=== PATIENT | male | born 1945 | race Caucasian/White ===

== ENCOUNTER 2025-04-07 06:24 | Day surgery (SDC) | payer MEDICARE, OTHER, SELFPAY ==
[2025-04-07] VITALS (10 sets, daily range): BP systolic 128–157; BP diastolic 44–63; BMI 35.6
[2025-04-07 07:40] LABS: Glucose - Point of Care 182 mg/dl (70-99)
--- NOTE | 2025-04-07 14:03 | ITS.CL.PN ---
Wheel Buffer - Procedure Note
Procedure
Procedure Note:
CARDIAC CATHETERIZATION REPORT
Date of Procedure: 04/07/2025
Referring: Dr. Melvina Merritt
Indication: atypical angina, positive cardiac stress test
PROCEDURE(S)
1. right heart catheterization
2. left heart catheterization
3. coronary angiography
ACCESS
1. 6F right radial artery (closure: radial band)
2. 5F right antecubital vein (closure: manual hemostasis)
CATHETERS
1. 5F Royal-Tita
2. 6F JR4
3. 6F JL4
MODERATE SEDATION: 35 minutes of moderate sedation was utilized. An independent medical laboratory manager was present to assist with and help manage the patient's level of consciousness and physiologic status.
HEMODYNAMIC DATA
LV 142/17 (EDP 27) mmHg
AO 136/57 (mean 90) mmHg
RA 17 mmHg
RV 52/13 (EDP 21) mmHg
PA 51/23 (mean 34) mmHg
PCWP 22 mmHg
SaO2 95.9%
SvO2 76.3%
Hb 11.5 g/dL
Weight 100 kg
CO/CI 8.70/4.08 L/min/m2
SVR 671 dsc*-5
PVR 1.4 Wood units
CORONARY ANGIOGRAPHY
Dominance: Right
LM: Large, normal
LAD: Large vessel giving rise to a moderate-caliber D1, moderate-caliber D2, and small D3. There is mild diffuse disesae only.
LCx: Large vessel giving rise to a large branching OM1 and small LPL branch. There is mild diffuse disease only.
RCA: large vessel giving rise to the RPDA and multiple RPL branches. There is a PAPER MILL MANAGER in the mid-RCA with R-R bridging collaterals and L-R collaterals from both the septum and apex. There is a marginal branch and a small bridging collateral that take
off right at the blunt proximal cap. The PAPER MILL MANAGER segment itself is straight with some calcification, and about 15 mm in length (JCTO score = 2).
RADIATION: dose 204 mGy; DAP 29.2 Gy*cm2; fluoroscopy time 5.9 min
CONCLUSIONS
1. Single vessel coronary artery disease as described in a right dominant system with RCA PAPER MILL MANAGER with R-R and L-R collaterals.
2. Mildly elevated right>left ventricular filling pressures, moderate predominantly post-capillary pulmonary hypertension, and normal cardiac output.
3. No aortic stenosis on hemodynamic pullback.
4. Of note, about 15 seconds after crossing into the LV with a JR4 catheter to measure LVEDP, the patient had ~5 seconds of complete heart block without a ventricular escape, triggered by a PAC. The period of heart block was terminated by a p-wave
that conducted after several consecutive non-conducted p-waves. This is consistent with phase 4 block. The patient had no further episodes of heart block either before or after the catheterization. He denied any personal history of lightheadedness,
dizziness, or syncope. He was discharge with a 2 week MCOT to be followed in my office and instructed to present to the ED should he have any symptoms of lightheadedness, dizziness, or syncope.
RECOMMENDATIONS
1. Aggressive secondary prevention of coronary artery disease.
2. Management of HFpEF with GDMT. Consider addition of SGLT2i.
3. Medical therapy for possible atypical anginal symptoms due to RCA PAPER MILL MANAGER. Should the patient have ongoing symptoms despite best medical therapy, consider RCA PAPER MILL MANAGER PCI with a dedicated PAPER MILL MANAGER cleaning and washing equipment operator.
4. Outpatient MCOT. If further episodes of phase 4 heart block many need consideration for PPM.
Copy to: Dr. Melvina Merritt (canal structure operator)
Signed: Jaguar Dwyer MD, PhD
== END 2025-04-07 12:34 | disposition home or self-care (01) ==
LOC: CATH 06:24
PROVIDERS: ATTENDING PHYSICIAN Student in an Organized Health Care Education/Training Program; FAMILY PHYSICIAN Student in an Organized Health Care Education/Training Program; OTHER PHYSICIAN Internal Medicine Cardiovascular Disease
DX: I25.119 Atherosclerotic heart disease of native coronary artery with unspecified angina pectoris (principal); I27.20 Pulmonary hypertension, unspecified; I25.82 Chronic total occlusion of coronary artery; I44.2 Atrioventricular block, complete; I50.30 Unspecified diastolic (congestive) heart failure; Z87.891 Personal history of nicotine dependence; I12.9 Hypertensive chronic kidney disease with stage 1 through stage 4 chronic kidney disease, or unspecified chronic kidney disease; E11.22 Type 2 diabetes mellitus with diabetic chronic kidney disease; N18.9 Chronic kidney disease, unspecified
CPT/HCPCS: 99152; 99153; 82962; 93460; C1769; C1894; Q9967

== ENCOUNTER → 2025-05-04 12:59 | Outpatient (REF) | payer MEDICARE, OTHER, SELFPAY | LOC: RAD 12:59 | PROVIDERS: ATTENDING PHYSICIAN Internal Medicine Hematology & Oncology; FAMILY PHYSICIAN Student in an Organized Health Care Education/Training Program | DX: C64.1 Malignant neoplasm of right kidney, except renal pelvis (principal) | CPT/HCPCS: 71275; Q9967 ==

== ENCOUNTER 2025-06-02 13:48 | Inpatient (IN) | payer MEDICARE, OTHER, SELFPAY ==
[2025-06-02] VITALS (13 sets, daily range): BP systolic 131–170; BP diastolic 42–96; BMI 33.5; BMI 35.8
--- NOTE | 2025-06-02 09:04 | ED.GENMED ---
History of Present Illness
<TERESO Bui - Last Filed: 06/02/25 11:00>
General
Chief Complaint: Breathing Problem
Source: patient
Exam Limitations: none
Time Seen by Provider: 06/02/25 08:56
Nursing documentation reviewed up to this point in time: agreed with
History of Present Illness
History of Present Illness:
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 Patient
reports for the past several days has had increasing shortness of breath and lower extremity swelling. He was short of breath last night while lying flat sleeping.
He normally is prescribed 20 mg of Lasix every other day. He reports this is a recent change . He was taking daily however his fiscal services manager recommended every other day because of his kidney function. Recently he increase it to 40 a day because
of his symptoms.
Patient takes 2.5 mg of Eliquis daily for the current IVC thrombus. He is followed by fiscal services manager DR Melvina Wray. Patient denies any associated chest pain.
Phy Exam
<TERESO Bui - Last Filed: 06/02/25 11:00>
General Physical Exam
General Presentation: no apparent distress
General age: appears stated age
General Skin: warm and dry
Scores
<TERESO Bui - Last Filed: 06/02/25 11:00>
Heart Failure Risk
Heart Failure Risk Score: Not Applicable
<Giuliano King DO - Last Filed: 06/02/25 13:39>
Heart Failure Risk
Heart Failure Risk Score: Yes
History of Stroke or TIA: No
History of intubation for respiratory distress: No
Heart rate on ED arrival >/= 110: No
SaO2 <90% on arrival on room air: No
HR >/=110 during 3min walk test (or too ill to perform test): Yes
ECG has acute ischemic changes: No
Urea >/=12mmol/L (BUN 33.6mg/dL): Yes
Serum CO2>/=35mmol/L: No
Troponin I or T elevated to ID Level (0.4mg/dL): No
NT-proBNP >/=5,000ng/L (5,000pg/ml): No
HF Risk Score: 3
Admission Status: HIGH RISK 15.9% Consider SNF treatment or admission to hospital
Course
<TERESO Bui - Last Filed: 06/02/25 11:00>
Orders/Labs/Results
Orders:
Orders
06/02/25 09:09
Electrocardiogram (*1) Urgent
Reason for Study: Chest Pain
Cardiac Monitoring- Treatment ONCE
EKG- Treatment ONCE
06/02/25 09:23
Complete Blood Count/With Diff Urgent
Comprehensive Metabolic Panel Urgent
Pro-BNP [NT-proBNP] Urgent
Troponin I Urgent
06/02/25 09:26
DDimer [D-Dimer] Urgent
06/02/25 09:30
CR Chest - 2 Views Urgent
Comment:
Reason For Exam: short of breath
06/02/25 Lunch
Cholesterol Lowering
06/02/25 10:48
Furosemide [Lasix] 40 mg IV NOW STA
Abnormal Lab Results
06/02/25 06/02/25
09:23 09:26
Hgb 12.8 L g/dL
(13.0-18.0)
MCHC 31.6 L g/dL
(33.0-37.0)
Absolute Monos (auto) 0.7 H 10^3/uL
(0.1-0.6)
Monocytes % 9.4 H %
(1.7-9.3)
D-Dimer 0.62 H ug/mlFEU
(0.00-0.50)
BUN 37 H mg/dl
(9-20)
Creatinine 1.4 H mg/dL
(0.7-1.3)
Glucose 126 H mg/dl
(70-99)
06/02/25 09:23
06/02/25 09:23
Vital Signs
Initial and Last Documented VS:
Initial Vital Signs
Temp Pulse Resp BP Pulse Ox
97.8 F 89 16 170/76 96
06/02/25 08:20 06/02/25 08:20 06/02/25 08:20 06/02/25 08:20 06/02/25 08:20
Last Documented Vital Signs
Temp Pulse Resp BP Pulse Ox
97.8 F 72 17 137/52 97
06/02/25 08:20 06/02/25 13:00 06/02/25 13:00 06/02/25 13:00 06/02/25 13:00
Senior Electrical Design Engineer consulted with Physician
Senior Electrical Design Engineer consulted with physician?: Yes
Name of Physician Consulted: Amy
<Giuliano King, DO - Last Filed: 06/02/25 13:39>
Orders/Labs/Results
Orders:
Orders
06/02/25 09:09
Electrocardiogram (*1) Urgent
Reason for Study: Chest Pain
Cardiac Monitoring- Treatment ONCE
EKG- Treatment ONCE
06/02/25 09:23
Complete Blood Count/With Diff Urgent
Comprehensive Metabolic Panel Urgent
Pro-BNP [NT-proBNP] Urgent
Troponin I Urgent
06/02/25 09:26
DDimer [D-Dimer] Urgent
06/02/25 09:30
CR Chest - 2 Views Urgent
Comment:
Reason For Exam: short of breath
06/02/25 Lunch
Cholesterol Lowering
06/02/25 10:48
Furosemide [Lasix] 40 mg IV NOW STA
Abnormal Lab Results
06/02/25 06/02/25
09:23 09:26
Hgb 12.8 L g/dL
(13.0-18.0)
MCHC 31.6 L g/dL
(33.0-37.0)
Absolute Monos (auto) 0.7 H 10^3/uL
(0.1-0.6)
Monocytes % 9.4 H %
(1.7-9.3)
D-Dimer 0.62 H ug/mlFEU
(0.00-0.50)
BUN 37 H mg/dl
(9-20)
Creatinine 1.4 H mg/dL
(0.7-1.3)
Glucose 126 H mg/dl
(70-99)
06/02/25 09:23
06/02/25 09:23
Vital Signs
Initial and Last Documented VS:
Initial Vital Signs
Temp Pulse Resp BP Pulse Ox
97.8 F 89 16 170/76 96
06/02/25 08:20 06/02/25 08:20 06/02/25 08:20 06/02/25 08:20 06/02/25 08:20
Last Documented Vital Signs
Temp Pulse Resp BP Pulse Ox
97.8 F 72 17 137/52 97
06/02/25 08:20 06/02/25 13:00 06/02/25 13:00 06/02/25 13:00 06/02/25 13:00
<TERESO Bui - Last Filed: 06/02/25 11:00>
MDM/Problems Addressed
Differential Diagnosis Includes:
Not limited to CHF PE
MDM/Problems Addressed:
Symptoms are consistent with congestive heart failure. Patient complains of increasing swelling of lower extremities and shortness of breath.. Chest x-ray shows mild pulmonary edema with a minimal right pleural effusion. Patient has stage IV
kidney cancer not currently treated yet. He is on Eliquis for history of an IVC thrombus. Less likely PE. ddimer normal age adjusted case reviewed with ED physician who evaluated patient. Patient denies any chest pain.
Patient in no acute distress however does feel mildly short of breath and is mildly hypoxic. Patient placed on nasal cannula 2 L. Will admit for IV diuresis.
Chronic conditions affecting care:
Stage IV kidney cancer CHF hypertension diabetes
<TERESO Bui - Last Filed: 06/02/25 11:00>
*Radiology
Radiology exam reviewed: radiology read reviewed
*Pulse Oximetry
SaO2: 91
Oxygen Mode of Delivery: Room air
Patient hypoxic: yes
*Critical Care Note
Total Time (30-74mins, 75-104mins- exclusive of procedures): Not Applicable
ED Attending Note
<TERESO Bui - Last Filed: 06/02/25 11:00>
-
Portions of this chart may have been created with voice recognition software.� Occasional wrong word or��sound alike� substitutions may have occurred due to the inherent limitations of voice recognition software.
<Giuliano King DO - Last Filed: 06/02/25 13:39>
ED Attending Note
Patient seen and examined by attending physician: Yes
ED Attending Note:
I reviewed and agree with history treatment plan by TERESO Motta. My exam revealed 80-year-old male with bilateral rales, bilateral tibial edema. Admit to hospitalist for CHF exacerbation. IV Lasix given.
Discharge Plan
Departure
Patient Disposition: Admit
Date of Disposition: 06/02/25
Time of Disposition: 10:56
Admit to: Telemetry
Admit to doctor: hospitalist
Presentation/result/management discussed w/ accepting MD/DO: Hospitalist
Patient with high blood pressure during this ER visit?: Yes
Condition: Fair
Covid-19: Not Applicable
Discharge Problem:
Congestive heart failure (CHF)
Prescriptions:
No Action
losartan 50 mg Tablet
50 mg PO BID
aspirin 81 mg Tablet,Chewable
81 mg PO DAILY
vitamin B complex Tablet
1 tab PO DAILY
furosemide 20 mg Tablet
20 mg PO DAILY
magnesium 200 mg Tablet
200 mg PO DAILY
omega-3 fatty acids-fish oil 684-1,200 mg Capsule,Delayed Release(Dr/Ec)
2 cap PO DAILY
azelastine 137 mcg (0.1 %) [place],Non-Aerosol
2 spray INTRANASAL HS
Eliquis 2.5 mg Tablet
2.5 mg PO BID
turmeric 400 mg Capsule
400 mg PO DAILY
Referrals:
ION HOLMAN DO [Family Provider, Family Practice]
Interventions
Interventions:
*Risk Screen - Suicide Last Done: 06/02/25 09:33
*General Assessment Last Done: 06/02/25 09:33
*Neglect/Abuse Screening Last Done: 06/02/25 09:33
*ED COVID-19 Vaccine History Last Done: 06/02/25 09:33
*ED Influenza Vaccine History Last Done: 06/02/25 09:33
[facility] Fall Risk Assessment Tool Last Done: 06/02/25 09:33
ED- Cardiac Assessment Last Done: 06/02/25 09:33
ED- Pulmonary Assessment Last Done: 06/02/25 09:33
Discharge Date and Time
Print Language: MAORI
--- NOTE | 2025-06-02 09:08 | EDRN ---
Mami Munoz NP in room w/ pt.
--- NOTE | 2025-06-02 09:25 | EDRN ---
Dr. King in to see pt.
[2025-06-02 09:36] LABS: Hematocrit 40.5 % (39.0-52.0); Hemoglobin 12.8 g/dL (13.0-18.0); Mean Corp Hgb Conc. 31.6 g/dL (33.0-37.0); Mean Corpuscular Volume 86.0 fL (80.0-94.0); Nucleated Red Blood Cells % 0 % (-); Platelet Count 213 10^3/uL (130-400); Red Cell Dist. Width 13.9 % (11.5-14.5)
[2025-06-02 09:50] LABS: ALT (SGPT) 23 U/L (0-50); AST (SGOT) 27 U/L (17-59); Alkaline Phosphatase 68 U/L (38-126); Blood Urea Nitrogen 37 mg/dl (9-20); Calcium 9.3 mg/dl (8.4-10.2); Carbon Dioxide 29 mmol/L (22-30); Chloride 104 mmol/L (98-107); Estimated Creatinine Clearance 47 ml/min; Glucose 126 mg/dl (70-99); Potassium 4.5 mmol/L (3.5-5.1); Sodium 139 mmol/L (135-145); Total Protein 7.2 g/dl (6.3-8.2); eGFR 50.18
[2025-06-02 09:53] LABS: D-Dimer 0.62 ug/mlFEU (0.00-0.50)
[2025-06-02 09:57] LABS: Albumin 4.5 g/dl (3.5-5.0)
[2025-06-02 10:01] LABS: Troponin I 0.019 ng/ml
--- NOTE | 2025-06-02 11:25 | EDRN ---
remediation technician Emily in room w/ pt doing med rec at this time.
[2025-06-02] MEDS: LASIX 40 MG IV ×2 (11:41→17:42)
--- NOTE | 2025-06-02 11:49 | EDRN ---
After 11:00 Mami Munoz NP placed pt on oxygen at 2lpm for low POX, 88-91%.
--- NOTE | 2025-06-02 14:45 | EDRN ---
Pt administered boxed lunch and cup of water after okayed w/ NEmber Munoz RADIOLOGICAL ENGINEER (at kristen 13:30).
--- NOTE | 2025-06-02 15:05 | CON.CAR ---
Addendum entered and electronically signed by Giacomo Pozo MD 06/02/25 18:30:
I saw and examined the patient independently, and performed majority of MDM.
The AUDIOLOGY DIRECTOR's note was reviewed and I agree with the note with changes/additions below.
Comment: 80 yo male with PMH of CAD (RCA INFORMATION SYSTEMS SECURITY SPECIALIST with collaterals), chronic HFPEF, CKD3a, newly diagnosed RCC, IVC thrombus on eliquis. Admitted with SOB, edema. Exam with RRR, no murmurs, 1+ LE edema. Echo: EF 55%, basal inferior hypokinesis, IVC
thrombus on eliquis. Cr 1.4.
Acute on chronic HFPEF. Severe, requiring hospitalization for IV diuresis, and close monitoring of labs/tele. Lasix recently increased from 20mg qod to qd. Continue lasix 40mg IV bid.
IVC thrombus. Known by history. Visualized on echo. I increased eliquis to 5mg bid and will discuss with hospitalist.
Original Note:
Consultation
Consultation Request
Date/Time Consultation Requested: 06/02/25 1:30p
Date/Time Consultation Performed: 06/02/25 2:30p
Requesting Provider: Dr. Manriquez
Performing Provider: TEREOS Breaux for Dr. Pozo
Reason for Consultation: HFpEF
Medical History
-
Chief Complaint: sob, weight gain
History of Present Illness:
Mr. 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
last 3 days. He also noticed weight gain of about 4 lbs overnight. His supervisor accounts receivable is Dr. Melvina Merritt at [facility]. He takes Lasix 20mg every other day, in the past Dr. Merritt tried to increase Lasix to daily but his kidney function
worsened so he went back to every other day. These last 3 days he has been taking Lasix daily, but no improvement. He is admitted to the hospitalist service and we are consulted for acute HFpEF. His chest x-ray shows mild interstitial cardiogenic
pulmonary edema, minimal right pleural effusion, mild cardiomegaly, metastatic mediastinal and right hilar lymphadenopathy. He follows with Dr. Livingston for renal cancer and is awaiting a brain MRI prior to treatment, this is scheduled for
06/14/25. Chest CT was completed in Apr 2025.
Past Medical History
Past Medical History: Other (as above)
Past Surgical History: Appendectomy
Social History
Tobacco: Former Smoker
Personal:
Living: With Family
Employment: Retired
Family History
Family History: Reviewed & Not Pertinent
Allergies / Home Medications
Allergy/AdvReac Type Severity Reaction Status Date / Time
No Known Allergies Allergy Verified 06/02/25 08:20
�Medication �Instructions �Recorded �Confirmed �Type
aspirin 81 mg chewable tablet 81 mg PO DAILY 04/07/25 06/02/25 History
furosemide 20 mg tablet 20 mg PO DAILY 04/07/25 06/02/25 History
losartan 50 mg tablet 50 mg PO BID 04/07/25 06/02/25 History
magnesium 200 mg tablet 200 mg PO DAILY 04/07/25 06/02/25 History
omega-3 fatty acids-fish oil 684 2 cap PO DAILY 04/07/25 06/02/25 History
mg-1,200 mg capsule,delayed release
vitamin B complex 1 tab PO DAILY 04/07/25 06/02/25 History
apixaban 2.5 mg tablet (Eliquis) 2.5 mg PO BID 06/02/25 06/02/25 History
azelastine 137 mcg (0.1 %) nasal 2 spray intranasal HS 06/02/25 06/02/25 History
spray
turmeric 400 mg capsule 400 mg PO DAILY Supplement 06/02/25 06/02/25 History
Review of Systems
-
History Source: Patient
All other systems: Negative unless noted
Physical Exam
Vital Signs
Temp Pulse Resp BP Pulse Ox
97.8 F 72 17 137/52 97
06/02/25 08:20 06/02/25 13:00 06/02/25 13:00 06/02/25 13:00 06/02/25 13:00
Lab Results
06/02/25 09:23
06/02/25 09:23
Troponin I 0.019 ng/ml 06/02/25 09:23
Juf-S-Gwldqtdpldr Pept 841 pg/ml 06/02/25 09:23
Physical Exam
General: Well Developed and No Apparent Distress
HEENT: Normocephalic and Anicteric
Respiratory: Clear and Non Labored Respirations
Cardiac: S1/S2, Regular Rhythm and Peripheral Edema (trace b/l LE)
Breast: Deferred by me
GI: Soft, Non Distended and Normal Bowel Sounds
Rectal: Deferred by Provider
Musculoskeletal: Edema
Skin: Warm and Dry
Neuro: AO x 3
Psych: Calm
Impression / Plan
-
HFpEF - acute on chronic.
- agree with IV diuresis Lasix 40mg BID, which requires intensive monitoring.
- monitor daily weights, follow BMP.
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
- during his cath 04/07/25 he had about 15 seconds after crossing into the LV with a JR4 catheter to measure LVEDP, the patient had ~5 seconds of complete heart block without a ventricular escape, triggered by a PAC. The period of heart block was
terminated by a p-wave that conducted after several consecutive non-conducted p-waves. This is consistent with phase 4 block. The patient had no further episodes of heart block either before or after the catheterization. He denied any personal
history of lightheadedness, dizziness, or syncope.
- He was discharge with a 2 week MCOT to be followed in my office and instructed to present to the ED should he have any symptoms of lightheadedness, dizziness, or syncope.
- MCOT did not show complete heart block, showed 2:1 heart block.
- he denies any recurrent symptoms.
HTN - stable on meds, continue.
Renal cancer - managed by Dr. Livingston.
IVC thrombus - on Eliquis on heme/onc.
Data Reviewed
-
Radiology: Report Reviewed by me (cxr: mild interstitial cardiogenic pulmonary edema, minimal right pleural effusion, mild cardiomegaly, metastatic mediastinal and right hilar lymphadenopathy)
Labs: Labs Reviewed by me
Old Records: Reviewed
--- NOTE | 2025-06-02 15:59 | HPS.HSE ---
Family Physician
-
Family Physician: ION HOLMAN, DO
Chief Complaint
-
Progressive lower extremity edema and shortness of breath
History of Present Illness
Patient with recent history of heart failure had a heart catheterization last month which showed a occlusion of RCA and advised medical therapy was noted to have elevated ventricular pressures and was going to be managed medically for possible heart
failure comes with progressive shortness of breath and lower extremity edema.
Prior to cardiac catheterization he says he was taking 20 mg of Lasix every day and did not remain on the same dose. Not on any other new medications after cardiac catheterization.
Progressively this week he started to become short of breath with minimal exertion and leg started to swell up. No chest pain or palpitations.
Has some cough but nonproductive. No fever or chills. No sore throat.
Was noted to be hypoxic in the ER. Chest x-ray was concerning for mild interstitial cardiogenic pulmonary edema with minimal right pleural effusion
He is admitted for acute heart failure CHF decompensation.
Medical History
Past Medical History
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
Past Surgical History: Reports None
Social History
Tobacco: Non-smoker
Alcohol: None
Drug: None
Living: With Family
Family History
Family History: Not pertinent
Allergies / Home Medications
Allergies reflects when Allergies were last updated in [facility].
Home Medications with original date entered in [facility]
Allergy/Medication List:
Allergies
Allergy/AdvReac Type Severity Reaction Status Date / Time
No Known Allergies Allergy Verified 06/02/25 08:20
Home Medications
aspirin 81 mg chewable tablet 81 mg PO DAILY 04/07/25
furosemide 20 mg tablet 20 mg PO DAILY 04/07/25
losartan 50 mg tablet 50 mg PO BID 04/07/25
magnesium 200 mg tablet 200 mg PO DAILY 04/07/25
omega-3 fatty acids-fish oil 684 mg-1,200 mg capsule,delayed release 2 cap PO DAILY 04/07/25
vitamin B complex 1 tab PO DAILY 04/07/25
apixaban 2.5 mg tablet (Eliquis) 2.5 mg PO BID 06/02/25
azelastine 137 mcg (0.1 %) nasal spray 2 spray intranasal HS 06/02/25
turmeric 400 mg capsule 400 mg PO DAILY Supplement 06/02/25
Review of Systems
-
A 12 point ROS was completed and negative except as noted: Yes
Physical Exam
Vital Signs
Vital Signs
Temp Pulse Resp BP Pulse Ox
97.8 F 78 28 138/96 97
06/02/25 08:20 06/02/25 15:00 06/02/25 15:00 06/02/25 15:00 06/02/25 15:00
Physical Exam
General: Comfortable
HEENT: Moist mucous membranes
Respiratory: Crackles (Bibasilar) and Non Labored Respirations; No Wheezes or Accessory Resp Muscle Use
GI: Soft, Non Tender, Non Distended and Normal Bowel Sounds
Musculoskeletal: Edema, Left Lower Extremity and Edema, Right Lower Extremity
Neuro: AO x 3
Psych: Calm
Laboratory Results
-
06/02/25 09:23
06/02/25 09:23
Laboratory Results
Total Bilirubin 0.7 mg/dl (0.2-1.3) 06/02/25 09:23
AST 27 U/L (17-59) 06/02/25 09:23
ALT 23 U/L (0-50) 06/02/25 09:23
Alkaline Phosphatase 68 U/L (38-126) 06/02/25 09:23
Troponin I 0.019 ng/ml 06/02/25 09:23
Data Reviewed
-
Diagnostic Radiology: Report Reviewed by me (Chest x-ray)
Lab Data: Labs Reviewed by me
Impression/Plan
-
Progressive lower EXTR edema with exertional shortness of breath
Clinical scenario concerning for acute heart failure
Clinical exam, chest x-ray and recent cardiac catheterization including right heart cath all concerning for heart failure. BNP not elevated but is obese.
Admit to telemetry.
Start on IV Lasix.
Get an echocardiogram.
Consult cardiology.
CAD status post recent cardiac catheterization showing single-vessel CAD with RCA complete occlusion with collaterals.
Continue with aspirin, statins.
History of essential hypertension-continue with losartan
Full code
--- NOTE | 2025-06-02 16:30 | TRANSFER ---
Received pt from ED via stretcher. Pt ambulated to bed with standby assist. compliance monitor placed. Reports GONZALEZ but improved since first got here. at bedside. AAOx3. Reports occasional right lower back pain from history of right kidney
cancer. Assessed and oriented to room. Verbalized understanding of call mao. Call mao within close reach. Will continue to monitor.
[2025-06-02] MEDS: COZAAR 50 MG PO (20:19)
[2025-06-02] MEDS: ELIQUIS 5 MG PO (20:19)
[2025-06-02 21:47] LABS: Glucose - Point of Care 131 mg/dl (70-99)
[2025-06-03 03:00] VITALS: BP 130/48
[2025-06-03 05:52] VITALS: BMI 35.6
[2025-06-03 07:44] VITALS: BP 146/53
[2025-06-03 07:49] LABS: Glucose - Point of Care 162 mg/dl (70-99)
[2025-06-03 08:25] LABS: Blood Urea Nitrogen 38 mg/dl (9-20); Calcium 9.8 mg/dl (8.4-10.2); Carbon Dioxide 34 mmol/L (22-30); Chloride 98 mmol/L (98-107); Estimated Creatinine Clearance 38 ml/min; Glucose 159 mg/dl (70-99); Magnesium 2.3 mg/dl (1.6-2.3); Potassium 5.1 mmol/L (3.5-5.1); Sodium 139 mmol/L (135-145); eGFR 42.75
[2025-06-03 08:48] LABS: Glycohemoglobin (HgbA1c) 6.7 % (4.0-5.9)
[2025-06-03] MEDS: MAGNESIUM OXIDE 200 MG PO (08:52)
[2025-06-03] MEDS: COZAAR 50 MG PO ×2 (08:52→19:43)
[2025-06-03] MEDS: ELIQUIS 5 MG PO (08:52)
[2025-06-03] MEDS: LOW STRENGTH ASPIRIN 81 MG PO (08:52)
[2025-06-03] MEDS: LASIX 40 MG IV ×2 (08:53→17:00)
[2025-06-03] MEDS: NOVOLOG FLEXPEN-LOW RESISTANCE 1 UNITS SC (08:54)
[2025-06-03 10:38] VITALS: BP 127/60
[2025-06-03 11:59] LABS: Glucose - Point of Care 122 mg/dl (70-99)
--- NOTE | 2025-06-03 12:25 | CM ---
Initial assessment completed with pt at bedside.
Pt is an 80yr old male admitted with CHF.
At baseline, pt lives with his in a 2 level home with 2 haider.
Prior, pt is indep with all mobility, ADLs, and driving. Pt works for [employer]
Pt has no current/hx of VN, SNF, equipment use.
PCP; Emily Villa
Pharm; [facility]
PLAN; Home with no needs anticipated
[2025-06-03] MEDS: NOVOLOG FLEXPEN-LOW RESISTANCE SC ×2 (12:56→17:00)
--- NOTE | 2025-06-03 12:59 | W.PN.HOSP.TC ---
Today's Communication/Plan
-
Continue with IV Lasix
Neck continue with Eliquis
Consult hematology
Assessment / Plan
Assessment / Plan
Progressive lower extremity edema with exertional shortness of breath
Clinical scenario concerning for acute heart failure with preserved EF
Clinical exam, chest x-ray and recent cardiac catheterization including right heart cath all concerning for heart failure. BNP not elevated but is obese.
cw IV Lasix.
Echocardiogram\\EF of 55%, mild to moderate MR, basal inferior hypokinesis, thrombus in IVC
Cardiology following
IVC thrombus-recently discovered
On Eliquis with 2.5 mg dose BID
Echo yesterday shows a IVC thrombus still.
Dose of Eliquis increased to therapeutic dose of 5 mg twice daily
Consulted oncology
Stage IV renal cancer
Await MRI of the brain before definitive treatments
Hematology consulted
CAD status post recent cardiac catheterization showing single-vessel CAD with RCA complete occlusion with collaterals.
Continue with aspirin, statins.
History of essential hypertension-continue with losartan
Full code
DW hematology today
Anticipated Discharge: > 48 hours
Subjective/Interval History
-
Date of Service: June 03, 2025
Feeling improved with regards to breathing. Off of oxygen. Also sees improvement in lower extremity swelling.
With regards to his stage IV renal cancer he was supposed to get an MRI of brain and follow-up with oncology.
Objective Data
-
Labs:
Laboratory Results
06/03/25
07:46
Sodium 139
Potassium 5.1
Chloride 98
Carbon Dioxide 34 H
BUN 38 H
Creatinine 1.6 H
Glucose 159 H
Calcium 9.8
Vital Signs:
Vital Signs
Temp Pulse Resp BP Pulse Ox
98.7 F 72 16 127/60 93
06/03/25 10:38 06/03/25 10:38 06/03/25 10:38 06/03/25 10:38 06/03/25 10:38
I&O
06/02/25 06/03/25 06/04/25
06:59 06:59 06:59
Intake Total 240 / 240
Output Total 1879 / 1879
Balance -1640 / -1640
Physical Exam
-
General: Comfortable
HEENT: Moist Mucous Membranes
Respiratory: Clear to Auscultation and Non Labored Respirations; Negative Accessory Resp Muscle Use
Cardiac: Regular Rhythm and S1/S2; Negative Tachycardic
Musculoskeletal: Edema, Right Lower Extrem and Edema, Left Lower Extrem
Neuro: AO x 3
Psych: Calm; Negative Confused
Data Reviewed
-
Labs: Labs Reviewed by me
--- NOTE | 2025-06-03 13:41 | CON.ONC ---
Consultation
-
Date Consultation Requested: 06/03/25
Date Consultation Performed: 06/03/25
Requesting Provider: cary
Performing Provider: annabella
Reason for Consultation: hx renal mass
Impression
Impression
Clinical stage IV renal cell carcinoma subtype to be determined
Plan
Plan
This is discussed his case with interventional radiology who noted feasibility of biopsy for which CT scan of the abdomen and pelvis with contrast was recommended for which nephrology will evaluate given chronic kidney disease; patient and family
informed reviewing current studies to date and need for tissue diagnosis to proceed forward with optimal treatment protocol.
Patient History
History of Present Illness
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 This was found incidentally during PET/CT myocardial imaging
03/23/2025 during which time clot was noted in IVC. Cardiac cath procedure performed at [facility] 04/07/2025 noted single-vessel coronary artery disease with right greater than left ventricular filling pressures consistent with moderate
pulmonary hypertension with a normal cardiac output. Echocardiogram performed 04/20/2025 noted a large oval structure in the IVC near the junction with the right atrium measuring 4.5 x 2.1 cm fairly homogeneous suggestive of a large organized
thrombus or mass of other etiology. Anticoagulation with Eliquis was initiated. An MRI of the abdomen was ordered and follow-up for which an 8.8 x 5.3 cm right lower pole mass extending to the hilar structures involving a 2.6 nonocclusive filling
defect of the medial right renal vein contiguous with the right lateral IVC with discontinuous nonocclusive thrombus in the hepatic IVC without definitive atrial extension the IVC (involvement was more than 2 cm above the renal vein but below
hepatic vein.) He was evaluated in the office on 05/02/[address] scan of the chest was ordered to exclude metastases as well as MRI of the brain in process of staging for which the patient chest scan noted no solid metastatic
lesions of the lungs though up to 4 cm subcarinal lymphadenopathy was found. Staging MRI of the brain has been ordered but not available till 06/14/2025. He now presents to the hospital with progressive shortness of breath consistent with HFpEF.
We are consulted for follow-up management
Past-Medical/Surgical History
DM2, appendectomy 1974, lumbar surgery 2009
Patient Medication
�Medication �Instructions �Recorded �Confirmed �Last Taken �Type
aspirin 81 mg chewable tablet 81 mg PO DAILY 04/07/25 06/02/25 06/02/25 History
furosemide 20 mg tablet 20 mg PO DAILY 04/07/25 06/02/25 06/02/25 History
losartan 50 mg tablet 50 mg PO BID 04/07/25 06/02/25 06/02/25 History
magnesium 200 mg tablet 200 mg PO DAILY 04/07/25 06/02/25 06/02/25 History
omega-3 fatty acids-fish oil 684 2 cap PO DAILY 04/07/25 06/02/25 06/02/25 History
mg-1,200 mg capsule,delayed release
vitamin B complex 1 tab PO DAILY 04/07/25 06/02/25 06/02/25 History
apixaban 2.5 mg tablet (Eliquis) 2.5 mg PO BID 06/02/25 06/02/25 06/02/25 History
azelastine 137 mcg (0.1 %) nasal 2 spray intranasal HS 06/02/25 06/02/25 06/01/25 History
spray
turmeric 400 mg capsule 400 mg PO DAILY Supplement 06/02/25 06/02/25 06/02/25 History
Active Medications
Generic Name Dose Route Start Last Admin
Trade Name Freq PRN Reason Stop Dose Admin
Apixaban 5 mg 06/02/25 20:00 06/03/25 08:52
Apixaban (Eliquis) 5 Mg Tablet PO 06/30/25 19:59 5 mg
BID SHEILA Administration
Aspirin 81 mg 06/03/25 08:00 06/03/25 08:52
Aspirin 81 Mg Chewable Tablet PO 07/01/25 07:59 81 mg
DAILY SHEILA Administration
Dextrose 12.5 grams 06/02/25 21:39
Dextrose 50% (0.5 Grams/Ml) 50 Ml Syringe IV 06/30/25 21:38
[id number] PRN
hypoglycemia
Protocol
Furosemide 40 mg 06/02/25 16:20 06/03/25 08:53
Furosemide 40 Mg (10 Mg/Ml) 4 Ml Vial IV 06/30/25 16:19 40 mg
BID AT 0800,1600 SHEILA Administration
Glucagon 1 mg 06/02/25 21:39
Glucagon 1 Mg Vial IM 06/30/25 21:38
PRN PRN
hypoglycemia
Protocol
Insulin Aspart 0 units 06/03/25 07:30 06/03/25 12:56
Insulin Aspart Low Resistance 300 Units/3 Ml Pen.Injctr SC 07/01/25 07:29 Not Given
AC SHEILA
Protocol
Losartan Potassium 50 mg 06/02/25 20:00 06/03/25 08:52
Losartan 50 Mg Tablet PO 06/30/25 19:59 50 mg
BID SHEILA Administration
Magnesium Oxide 200 mg 06/03/25 08:00 06/03/25 08:52
Magnesium Oxide 400 Mg Tablet PO 07/01/25 07:59 200 mg
DAILY SHEILA Administration
Sodium Chloride 0 flush 06/02/25 17:00
Sodium Chloride 0.9% (Flush) Syringe IV 06/30/25 16:59
PER PROTOCOL SHEILA
Review of Systems
-
History Source: Patient and Family
All Other Systems: Reviewed and Negative
Physical Exam
-
General: Well Developed and Well Nourished
HEENT: Moist Mucous Membranes
Cardiology: Normal Sinus Rhythm
Pulmonary: Clear
GI: Soft and Normal Bowel Sounds
Extremities: Pulses Present
Neurology: Non Focal
Psych: Calm and Intact Judgement/Insight
Labs
Lab Results
WBC 7.4 10^3/uL (4.8-10.8) 06/02/25 09:
RBC 4.71 10^6/uL (4.70-6.10) 06/02/25 09:
Hgb 12.8 g/dL (13.0-18.0) L 06/02/25:
Hct 40.5 % (39.0-52.0) 06/02/25 09:
MCV 86.0 fL (80.0-94.0) 06/02/25:
MCH 27.2 pg (27.0-31.0) 06/02/25:
MCHC 31.6 g/dL (33.0-37.0) L 06/02/25:
RDW 13.9 % (11.5-14.5) 06/02/25 09:
Plt Count 213 10^3/uL (130-400) 06/02/25 09:23
MPV 9.2 fL (7.4-10.4) 06/02/25 09:23
Abs Immat Gran (auto) 0.0 10^3/uL (0-0.05) 06/02/25 09:
Absolute Neuts (auto) 4.6 10^3/uL (1.4-6.5) 06/02/25 09:
Absolute Lymphs (auto) 1.7 10^3/uL (1.2-3.4) 06/02/25 09:
Absolute Monos (auto) 0.7 10^3/uL (0.1-0.6) H 06/02/25 09:
Absolute Eos (auto) 0.3 10^3/uL (0-0.7) 06/02/25 09:
Absolute Basos (auto) 0.1 10^3/uL (0-0.2) 06/02/25 09:
Immature Gran % 0.3 % (0-0.5) 12/12/25 09:23
Neutrophils % 62.3 % (42.2-75.2) 06/02/25 09:23
Lymphocytes % 22.8 % (20.5-51.1) 06/02/25 09:23
Monocytes % 9.4 % (1.7-9.3) H 06/02/25 09:23
Eosinophils % 4.0 % (0-6) 06/02/25 09:23
Basophils % 1.2 % (0-2) 06/02/25 09:23
Creatinine 1.6 mg/dL (0.7-1.3) H 06/03/25 07:46
Vital Signs
Vital Signs
Temp Pulse Resp BP Pulse Ox
98.7 F 72 16 127/60 93
06/03/25 10:38 06/03/25 10:38 06/03/25 10:38 06/03/25 10:38 06/03/25 10:38
--- NOTE | 2025-06-03 14:03 | W.CON.NEPH ---
Consultation
-
Date/Time Consultation Requested: 06/03/2025 2:00 p.m.
Date/Time Consultation Performed: 06/03/2025 2:00 p.m.
Requesting Provider: Dr. Manriquez
Performing Provider: Dr. Linares
Reason for Consultation: chronic kidney disease
Medical History
-
Chief Complaint: chronic kidney disease
History of Present Illness:
The patient is an 80-year-old male with recent history of heart failure had a heart catheterization last month which showed a occlusion of RCA and advised medical therapy was noted to have elevated ventricular pressures and was going to be managed
medically for possible heart failure comes with progressive shortness of breath and lower extremity edema. he is maintained on 20 mg of furosemide. He remains on losartan for hypertension.
Progressively this week he started to become short of breath with minimal exertion and leg started to swell up. No chest pain or palpitations.
Has some cough but nonproductive. No fever or chills. No sore throat. the patient does have a history of renal cell carcinoma which is not been treated yet with suspected bilateral adrenal gland nodules. The patient needs to undergo CT guided
biopsy and will need contrast in the setting of his chronic kidney disease and Nephrology was asked to see the patient.
Was noted to be hypoxic in the ER. Chest x-ray was concerning for mild interstitial cardiogenic pulmonary edema with minimal right pleural effusion
He is admitted for acute heart failure CHF decompensation.
Past Medical History
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
Social History
Tobacco: Non-Smoker
Alcohol: None
Drug: None
Family History
Family History: Not Pertinent
Allergies / Home Medications
Allergy/AdvReac Type Severity Reaction Status Date / Time
No Known Allergies Allergy Verified 06/02/25 08:20
�Medication �Instructions �Recorded �Confirmed �Type
aspirin 81 mg chewable tablet 81 mg PO DAILY 04/07/25 06/02/25 History
furosemide 20 mg tablet 20 mg PO DAILY 04/07/25 06/02/25 History
losartan 50 mg tablet 50 mg PO BID 04/07/25 06/02/25 History
magnesium 200 mg tablet 200 mg PO DAILY 04/07/25 06/02/25 History
omega-3 fatty acids-fish oil 684 2 cap PO DAILY 04/07/25 06/02/25 History
mg-1,200 mg capsule,delayed release
vitamin B complex 1 tab PO DAILY 04/07/25 06/02/25 History
apixaban 2.5 mg tablet (Eliquis) 2.5 mg PO BID 06/02/25 06/02/25 History
azelastine 137 mcg (0.1 %) nasal 2 spray intranasal HS 06/02/25 06/02/25 History
spray
turmeric 400 mg capsule 400 mg PO DAILY Supplement 06/02/25 06/02/25 History
Review of Systems
-
History Source: Patient
All other systems: Negative unless noted
Constitutional: Weight Gain
Respiratory: Cough and Trouble Breathing
Musculoskeletal: Edema
Physical Exam
Vital Signs
Vital Signs
Temp Pulse Resp BP Pulse Ox
98.7 F 72 16 127/60 93
06/03/25 10:38 06/03/25 10:38 06/03/25 10:38 06/03/25 10:38 06/03/25 10:38
Lab Results
06/03/25 07:46
Sodium 139 mmol/L (135-145) 06/03/25 07:46
Potassium 5.1 mmol/L (3.5-5.1) 06/03/25 07:46
Chloride 98 mmol/L (98-107) 06/03/25 07:46
Carbon Dioxide 34 mmol/L (22-30) H 06/03/25 07:46
BUN 38 mg/dl (9-20) H 06/03/25 07:46
Creatinine 1.6 mg/dL (0.7-1.3) H 06/03/25 07:46
eGFR 42.75 06/03/25 07:46
Glucose 159 mg/dl (70-99) H 06/03/25 07:46
Calcium 9.8 mg/dl (8.4-10.2) 06/03/25 07:46
Nam-A-Woksfdahhxa Pept 841 pg/ml 06/02/25 09:23
Albumin 4.5 g/dl (3.5-5.0) 06/02/25 09:23
Physical Exam
General: AOx3 and No Distress
HEENT: PERRL, EOMI, Anicteric, Conjunctivae Clear, Ear/Nose Intact, Hearing Normal, Oropharynx Clear/Moist, Dentition Intact, Facial Symmetry, Neck Supple, Trachea Midline, No JVD and No Thyromegaly
Respiratory: Crackels ( fine at bases), Normal Excursion and Nonlabored Respirations
Cardiac: S1/S2 and Regular Rate/Rhythm
Breast: Deferred by me
Abdomen: Soft, Nontender, Nondistended, Normal Bowel Sounds and No Hepatosplenomegaly
Rectal: Deferred by Provider
Genito-urinary: No Costovertebral Tender and Clear Urine
Musculoskeletal: Edema
Skin: No Rash, Warm, Dry, No Clubbing, No Cyanosis, Normal Turgor and No Bruising
Neuro: Nonfocal/Grossly Intact
Hematologic/Lymphatic: No Cervical Lymphadenopathy
Psych: Mood/afflect pleasant and Insight/judgement good
Data Reviewed
-
Radiology: Image Personally Visualized and interpreted ( chest x-ray personally reviewed shows cardiomegaly and interstitial edema)
Medical Tests (Nuc Med, Echo etc): Discussed with Patient and Other ( EKG reviewed sinus with a first-degree AV block right bundle branch and left anterior fascicular block)
Labs: Labs Reviewed by me ( BMP CBC)
Old Records: Reviewed (we will review previous creatinine levels through patient's online records)
Assessment/Plan
-
Impression:
decompensated congestive heart failure/Echocardiogram\\EF of 55%, mild to moderate MR, basal inferior hypokinesis, thrombus in IVC
stage IV renal cancer
CKD stage IIIA
IVC thrombus despite oral anticoagulation therapy
hypertension
bilateral adrenal gland nodules
Plan:
patient continues with IV diuretics for decompensated congestive heart failure
we will follow creatinine through weekend
ideally would provide IV contrast prophylaxis with IV fluids pre and post CAT scan for planned IR guided biopsy but this may be complicated by volume overload
would hold ION antagonist day of CT guided biopsy
check urinalysis in regards to CKD
[2025-06-03 14:41] LABS: Hematocrit 38.3 % (39.0-52.0); Hemoglobin 12.4 g/dL (13.0-18.0); Mean Corp Hgb Conc. 32.4 g/dL (33.0-37.0); Mean Corpuscular Volume 83.3 fL (80.0-94.0); Platelet Count 229 10^3/uL (130-400); Red Cell Dist. Width 13.9 % (11.5-14.5)
[2025-06-03 14:51] LABS: APTT 34.9 Sec (23.4-35.0)
[2025-06-03 15:42] VITALS: BP 143/46
[2025-06-03 16:53] LABS: Glucose - Point of Care 108 mg/dl (70-99)
--- NOTE | 2025-06-03 17:28 | W.PN.CD ---
Today's Communication / Plan
-
continue lasix 40mg IV bid
Impression / Plan
-
HFpEF - acute on chronic.
- severe, requiring hospitalization for IV diuresis, and close monitoring of labs/tele
-echo 06/02: EF 55%, basal inferior HK, mild/mod MR, IVC thrombus visualized
-nephrology consulted as well with CKD3b
-continue lasix 40mg IV bid
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
- during his cath 04/07/25 he had about 15 seconds after crossing into the LV with a JR4 catheter to measure LVEDP, the patient had ~5 seconds of complete heart block without a ventricular escape, triggered by a PAC. The period of heart block was
terminated by a p-wave that conducted after several consecutive non-conducted p-waves. This is consistent with phase 4 block. The patient had no further episodes of heart block either before or after the catheterization. He denied any personal
history of lightheadedness, dizziness, or syncope.
- MCOT did not show complete heart block, showed 2:1 heart block.
- here tele shows NSR and Wenckebach
HTN - stable on meds, continue losartan 50mg bid
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
-stable, no angina
-cont ASA
-does not appear to be on statin--to investigate why before d/c
Renal cancer - managed by Dr. Livingston. Looks like there is plan for inpatient biopsy
IVC thrombus -known from history, and also visualized on echo 06/02
-with upcoming biopsy, eliquis is held, and heparin drip will start tonight
Physical Exam
Vital Signs/Labs
Vital Signs
Temp Pulse Resp BP Pulse Ox
98.6 F 73 16 143/46 92
06/03/25 15:42 06/03/25 15:42 06/03/25 15:42 06/03/25 15:42 06/03/25 15:42
06/02/25 06/03/25 06/04/25
06:59 06:59 06:59
Actual Weight 97.125 kg
06/03/25 14:17
06/03/25 07:46
APTT 34.9 Sec (23.4-35.0) 06/03/25 14:17
Magnesium 2.3 mg/dl (1.6-2.3) 06/03/25 07:46
06/02/25
09:23
Fzk-D-Mgpiudhpfws Pept 841
LAB Results
06/02/25
09:23
Troponin I 0.019
Physical Exam
Constitutional: No acute distress and Comfortable
EENT: Moist mucous membranes
Cardiovascular: Rhythm & rate is regular, Pedal edema present, JVD present and Systolic murmur present
Respiratory: Respiratory effort normal and Lungs clear to auscul.
Neuro/Psych: AO x 3
Data Reviewed
-
Date of Service: June 03, 2025
EKG: Other (Tele: Christo CALHOUN)
Labs: Labs Reviewed by me
[2025-06-03 19:36] VITALS: BP 141/65
[2025-06-03 19:58] LABS: Urine Character Clear (Clear)
[2025-06-03] MEDS: HEPARIN 25000 UNITS/250 ML IV (21:05)
[2025-06-03 21:07] LABS: Urine Squamous Cell 0-2 /LPF (Few)
[2025-06-03 21:08] LABS: Urine Red Blood Cell 0-2 /HPF (0-2); Urine White Cell 0-2 /HPF (0-5)
[2025-06-03 21:38] LABS: Glucose - Point of Care 160 mg/dl (70-99)
[2025-06-03 23:27] VITALS: BP 126/69
[2025-06-04 03:43] VITALS: BMI 35.2
[2025-06-04 03:43] LABS: APTT 121.0 Sec (23.4-35.0)
[2025-06-04 03:49] VITALS: BP 148/68
[2025-06-04 07:00] VITALS: BP 133/52
[2025-06-04 08:29] LABS: Glucose - Point of Care 195 mg/dl (70-99)
[2025-06-04] MEDS: LOW STRENGTH ASPIRIN 81 MG PO (08:44)
[2025-06-04] MEDS: NOVOLOG FLEXPEN-LOW RESISTANCE 1 UNITS SC (08:45)
[2025-06-04] MEDS: LASIX 40 MG IV ×2 (08:45→15:52)
[2025-06-04] MEDS: COZAAR 50 MG PO (08:46)
[2025-06-04] MEDS: MAGNESIUM OXIDE 200 MG PO (08:46)
--- NOTE | 2025-06-04 10:21 | W.PN.CD ---
Today's Communication / Plan
-
IV lasix
AM labs pending
Impression / Plan
-
HFpEF - acute on chronic.
- severe, requiring hospitalization for IV diuresis, and close monitoring of labs/tele
-echo 06/02: EF 55%, basal inferior HK, mild/mod MR, IVC thrombus visualized
-nephrology consulted as well with CKD3b
-continue lasix 40mg IV bid
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
- during his cath 04/07/25 he had about 15 seconds after crossing into the LV with a JR4 catheter to measure LVEDP, the patient had ~5 seconds of complete heart block without a ventricular escape, triggered by a PAC. The period of heart block was
terminated by a p-wave that conducted after several consecutive non-conducted p-waves. This is consistent with phase 4 block. The patient had no further episodes of heart block either before or after the catheterization. He denied any personal
history of lightheadedness, dizziness, or syncope.
- MCOT did not show complete heart block, showed 2:1 heart block.
- here tele shows NSR and Wenckebach, and 2:1
HTN - stable on meds, continue losartan 50mg bid
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
-stable, no angina
-cont ASA
-does not appear to be on statin--to investigate why before d/c, lipids pending
Renal cancer - managed by Dr. Livingston. Looks like there is plan for inpatient biopsy
IVC thrombus -known from history, and also visualized on echo 06/02
-with upcoming biopsy, eliquis is held, and heparin drip will start tonight
Physical Exam
Vital Signs/Labs
Vital Signs
Temp Pulse Resp BP Pulse Ox
97.7 F 75 18 133/52 94
06/04/25 07:00 06/04/25 08:45 06/04/25 07:00 06/04/25 08:45 06/04/25 07:00
06/03/25 06/04/25 06/05/25
06:59 06:59 06:59
Actual Weight 97.125 kg 95.98 kg
06/03/25 14:17
APTT 121.0 Sec (23.4-35.0) H 06/04/25 03:18
Magnesium 2.3 mg/dl (1.6-2.3) 06/03/25 07:46
06/02/25
09:23
Zac-F-Brpayxaxfad Pept 841
LAB Results
06/02/25
09:23
Troponin I 0.019
Physical Exam
Constitutional: No acute distress and Comfortable
EENT: Moist mucous membranes
Cardiovascular: Rhythm & rate is regular, Pedal edema is absent, JVD present and Systolic murmur present
Respiratory: Respiratory effort normal and Lungs clear to auscul.
Neuro/Psych: AO x 3
Data Reviewed
-
Date of Service: June 04, 2025
EKG: Other (Tele: Christo CALHOUN, 2:1)
Labs: Labs Reviewed by me
[2025-06-04 10:57] LABS: APTT 108.7 Sec (23.4-35.0)
[2025-06-04 11:00] VITALS: BP 144/51
[2025-06-04 11:46] LABS: Blood Urea Nitrogen 43 mg/dl (9-20); Calcium 9.3 mg/dl (8.4-10.2); Carbon Dioxide 29 mmol/L (22-30); Chloride 95 mmol/L (98-107); Estimated Creatinine Clearance 36 ml/min; Glucose 145 mg/dl (70-99); HDL Cholesterol 43 mg/dl; LDL Cholesterol, Calculated 34 mg/dl; Potassium 4.0 mmol/L (3.5-5.1); Sodium 136 mmol/L (135-145); Very Low Density Lipoprotein 21 mg/dl (0-30); eGFR 39.75
[2025-06-04 12:13] LABS: Glucose - Point of Care 108 mg/dl (70-99)
[2025-06-04] MEDS: NOVOLOG FLEXPEN-LOW RESISTANCE SC ×2 (12:15→17:30)
--- NOTE | 2025-06-04 12:24 | W.PN.NEPH.PH ---
Today's Communication / Plan
-
hold off on CT scan
follow BMP
diuresis in affect for congestive heart failure
quantitate underlying proteinuria
Assessment/Plan
-
Impression:
decompensated congestive heart failure/Echocardiogram\\EF of 55%, mild to moderate MR, basal inferior hypokinesis, thrombus in IVC
stage IV renal cancer
CKD stage IIIA
IVC thrombus despite oral anticoagulation therapy
hypertension
bilateral adrenal gland nodules
Plan:
patient continues with IV diuretics for decompensated congestive heart failure
Creatinine is now up to 1.7, I would not perform CAT scan with IV contrast at this time, discussed with primary team
we will follow creatinine through weekend
ideally would provide IV contrast prophylaxis with IV fluids pre and post CAT scan for planned IR guided biopsy but this may be complicated by volume overload
would hold ION antagonist day of CT guided biopsy
checked urinalysis in regards to CKD,ua notes 2 plus albumin
-
-
Date of Service: June 04, 2025
CC / HPI / ROS
-
Chief Complaint:
acute kidney injury
History of Present Illness:
creatinine up to 1.7
hemodynamically stable
remains on Lasix 40 mg IV b.i.d. for chf decompensation
Review of Systems:
diuresis with urine output in excess of 3-1/2 L
Labs
-
Labs:
WBC 8.4 10^3/uL (4.8-10.8) 06/03/25 14:17
RBC 4.60 10^6/uL (4.70-6.10) L 06/03/25 14:17
Hgb 12.4 g/dL (13.0-18.0) L 06/03/25 14:17
Hct 38.3 % (39.0-52.0) L 06/03/25 14:17
Plt Count 229 10^3/uL (130-400) 06/03/25 14:17
Sodium 136 mmol/L (135-145) 06/04/25 10:08
Potassium 4.0 mmol/L (3.5-5.1) 06/04/25 10:08
Chloride 95 mmol/L (98-107) L 06/04/25 10:08
Carbon Dioxide 29 mmol/L (22-30) 06/04/25 10:08
BUN 43 mg/dl (9-20) H 06/04/25 10:08
Creatinine 1.7 mg/dL (0.7-1.3) H 06/04/25 10:08
eGFR 39.75 06/04/25 10:08
Glucose 145 mg/dl (70-99) H 06/04/25 10:08
Calcium 9.3 mg/dl (8.4-10.2) 06/04/25 10:08
Uco-Y-Dwpiugpktgu Pept 841 pg/ml 06/02/25 09:23
Albumin 4.5 g/dl (3.5-5.0) 06/02/25 09:23
Physical Exam
-
Vital Signs:
Vital Signs
Temp Pulse Resp BP Pulse Ox
98.4 F 64 18 144/51 97
06/04/25 11:00 06/04/25 11:00 06/04/25 11:00 06/04/25 11:00 06/04/25 11:00
Cardiovascular:: Regular rate and rhythm
Respiratory:: Bilateral: Coarse
Lung Excursion:: Normal
Abdomen:: Nontender and Soft
Bowel Sounds:: Normal
Extremity Edema:: None: Bilateral:
[place] Catheter: No
--- NOTE | 2025-06-04 12:46 | W.PN.HOSP.TC ---
Today's Communication/Plan
-
CW diuresis
Follow BMP
Hold on CT A/P with contrast pre renal bx till renally cleared
CW IV Heparin for now
Assessment / Plan
Assessment / Plan
Progressive lower extremity edema with exertional shortness of breath
Clinical scenario concerning for acute heart failure with preserved EF
Clinical exam, chest x-ray and recent cardiac catheterization including right heart cath all concerning for heart failure. BNP not elevated but is obese.
Improved weight. cw IV Lasix.
Echocardiogram\\EF of 55%, mild to moderate MR, basal inferior hypokinesis, thrombus in IVC
Cardiology following
IVC thrombus-recently discovered
On Eliquis with 2.5 mg dose BID
Echo 05/03 shows a IVC thrombus still.
Dose of Eliquis increased to therapeutic dose of 5 mg twice daily but with plans for Renal mass bx pt currently on IV Heparin
Appreciate oncology input
Hx Stage IV renal cancer
Await MRI of the brain before definitive treatments
Hematology input noted-recommend renal biopsy-they discussed with IR regarding biopsy who would want a CT abdomen pelvis with contrast prior to biopsy.
Acute kidney injury on 1 acute disease stage IIIa
Had consulted yesterday nephrology for KRISTI prophylaxis management
With rising creatinine which could be secondary to diuresis hold on CT with contrast imaging for now.
CAD status post recent cardiac catheterization showing single-vessel CAD with RCA complete occlusion with collaterals.
Continue with aspirin, statins.
History of essential hypertension-continue with losartan
Full code
DW nephrology today-recommends to hold CT with contrast today. Check BMP tomorrow
Anticipated Discharge: > 48 hours
Subjective/Interval History
-
Date of Service: June 04, 2025
Feeling improved. Denies any shortness of breath. Improved lower extremity edema.
Denies chest pain. No dizziness.
Objective Data
-
Labs:
Laboratory Results
06/04/25 06/04/25 06/04/25
03:18 10:08 16:00
APTT 121.0 H 108.7 H Pending
Sodium 136
Potassium 4.0
Chloride 95 L
Carbon Dioxide 29
BUN 43 H
Creatinine 1.7 H
Glucose 145 H
Calcium 9.3
Vital Signs:
Vital Signs
Temp Pulse Resp BP Pulse Ox
98.4 F 64 18 144/51 97
06/04/25 11:00 06/04/25 11:00 06/04/25 11:00 06/04/25 11:00 06/04/25 11:00
I&O
06/03/25 06/04/25 06/05/25
06:59 06:59 06:59
Intake Total 240 / 240 480 / 480 240 / 240
Output Total 1880 / 1880 2700 / 2700 1000 / 1000
Balance -1640 / -1640 -2220 / -2220 -760 / -760
Physical Exam
-
General: No Apparent Distress
HEENT: Moist Mucous Membranes
Respiratory: Clear to Auscultation and Non Labored Respirations; Negative Accessory Resp Muscle Use
GI: Soft
Musculoskeletal: Edema, Right Lower Extrem and Edema, Left Lower Extrem (Improved bilateral lower extremity edema)
Neuro: AO x 3
Psych: Calm
Data Reviewed
-
Labs: Labs Reviewed by me
[2025-06-04] MEDS: HEPARIN 25000 UNITS/250 ML IV (13:14)
[2025-06-04 15:00] VITALS: BP 133/51
[2025-06-04 16:33] LABS: APTT 94.7 Sec (23.4-35.0)
[2025-06-04 17:28] LABS: Glucose - Point of Care 118 mg/dl (70-99)
[2025-06-04 19:29] VITALS: BP 136/61
[2025-06-04 21:35] LABS: Glucose - Point of Care 115 mg/dl (70-99)
[2025-06-04 23:09] VITALS: BP 111/40
[2025-06-05] MEDS: HEPARIN 25000 UNITS/250 ML IV (05:59)
[2025-06-05 06:33] LABS: Hematocrit 38.7 % (39.0-52.0); Hemoglobin 12.3 g/dL (13.0-18.0); Mean Corp Hgb Conc. 31.8 g/dL (33.0-37.0); Mean Corpuscular Volume 83.2 fL (80.0-94.0); Platelet Count 205 10^3/uL (130-400); Red Cell Dist. Width 13.8 % (11.5-14.5)
[2025-06-05 06:43] LABS: APTT 119.2 Sec (23.4-35.0)
[2025-06-05 07:40] LABS: Blood Urea Nitrogen 46 mg/dl (9-20); Calcium 9.0 mg/dl (8.4-10.2); Carbon Dioxide 31 mmol/L (22-30); Chloride 95 mmol/L (98-107); Estimated Creatinine Clearance 36 ml/min; Glucose 137 mg/dl (70-99); Potassium 4.2 mmol/L (3.5-5.1); Sodium 134 mmol/L (135-145); eGFR 39.75
[2025-06-05 07:54] VITALS: BP 135/72
[2025-06-05 08:21] LABS: Glucose - Point of Care 138 mg/dl (70-99)
[2025-06-05] MEDS: MAGNESIUM OXIDE 200 MG PO (08:23)
[2025-06-05] MEDS: LOW STRENGTH ASPIRIN 81 MG PO (08:29)
[2025-06-05] MEDS: NOVOLOG FLEXPEN-LOW RESISTANCE SC ×3 (08:31→17:21)
[2025-06-05] MEDS: LASIX 40 MG IV (08:31)
[2025-06-05 10:00] VITALS: BMI 35.2
[2025-06-05 11:10] VITALS: BP 150/53
[2025-06-05 11:39] LABS: Glucose - Point of Care 116 mg/dl (70-99)
--- NOTE | 2025-06-05 12:49 | W.PN.NEPH.PH ---
Today's Communication / Plan
-
follow BMP
Assessment/Plan
-
Impression:
decompensated congestive heart failure/Echocardiogram\\EF of 55%, mild to moderate MR, basal inferior hypokinesis, thrombus in IVC
stage IV renal cancer
CKD stage IIIA
IVC thrombus despite oral anticoagulation therapy
hypertension
bilateral adrenal gland nodules
Plan:
check O2 sat off supplemental O2
daily weights
follow BMP
hold further IV lasix, he says he is below his best OP weight of 215#
If Cr improves tomorrow, can move forward with CT/Biopsy with IVF prophylaxis
-
-
Date of Service: June 05, 2025
CC / HPI / ROS
-
Chief Complaint:
acute kidney injury
History of Present Illness:
creatinine up to 1.7 stable
hemodynamically stable
remains on Lasix 40 mg IV b.i.d. for chf decompensation, diuresing well, down 4.5kg
Review of Systems:
no CP/SOB
Labs
-
Labs:
WBC 7.9 10^3/uL (4.8-10.8) 06/05/25 06:24
RBC 4.65 10^6/uL (4.70-6.10) L 06/05/25 06:24
Hgb 12.3 g/dL (13.0-18.0) L 06/05/25 06:24
Hct 38.7 % (39.0-52.0) L 06/05/25 06:24
Plt Count 205 10^3/uL (130-400) 06/05/25 06:24
Sodium 134 mmol/L (135-145) L 06/05/25 06:24
Potassium 4.2 mmol/L (3.5-5.1) 06/05/25 06:24
Chloride 95 mmol/L (98-107) L 06/05/25 06:24
Carbon Dioxide 31 mmol/L (22-30) H 06/05/25 06:24
BUN 46 mg/dl (9-20) H 06/05/25 06:24
Creatinine 1.7 mg/dL (0.7-1.3) H 06/05/25 06:24
eGFR 39.75 06/05/25 06:24
Glucose 137 mg/dl (70-99) H 06/05/25 06:24
Calcium 9.0 mg/dl (8.4-10.2) 06/05/25 06:24
Lzb-S-Closkbluvby Pept 841 pg/ml 06/02/25 09:23
Albumin 4.5 g/dl (3.5-5.0) 06/02/25 09:23
Physical Exam
-
Vital Signs:
Vital Signs
Temp Pulse Resp BP Pulse Ox
98 F 69 16 150/53 97
06/05/25 11:10 06/05/25 11:10 06/05/25 11:10 06/05/25 11:10 06/05/25 11:10
Cardiovascular:: Regular rate and rhythm
Respiratory:: Bilateral: Coarse
Lung Excursion:: Normal
Abdomen:: Nontender and Soft
Bowel Sounds:: Normal
Extremity Edema:: None: Bilateral:
--- NOTE | 2025-06-05 13:02 | CM ---
patient seen at bedside
cont on oxygen currently
offered VN - patient declines
PLAN: Home, no needs, declines vn
transport self
--- NOTE | 2025-06-05 13:55 | W.PN.HOSP.TC ---
Today's Communication/Plan
-
Will discuss with Heme
Lasix on hold
Assessment / Plan
Assessment / Plan
80-year-old with history of CHF and recent cardiac cath showed occlusion of RCA (04/07/2025) and advised for medical treatment presented with lower extremity edema
Echo-normal LV size, systolic function. EF 55%. Basal inferior hypokinesis. Mild to moderate MR. Thrombus in the IVC.
CVS: S1-S2 normal
Chest: CTA B/L
Abdomen: Soft, NT / Bowel sounds present
Extremities: No edema
# Progressive lower extremity edema with exertional shortness of breath
Acute HFpEF
Treated with IV Lasix ( Now held)
Monitor weights-improved
Intake output charting and CHF education
Cardiology following
GMDT-not possible now because of renal function
Weight was 100 kg on admission note 95.9 kg.
# IVC thrombus recently discovered-was on Eliquis 2.5 twice daily which was increased to 5 twice daily. Currently on IV heparin for renal biopsy
# Stage IV renal cell cancer-awaiting MRI of the brain before to continue treatments-scheduled for 06/14/2024
Hematology input noted recommended renal biopsy-discussed with IR -pt needs CT of the abdomen and pelvis with contrast prior to the biopsy
Mediastinal and right hilar lymphadenopathy noted on CT
Because of CKD nephrology has been holding off on clearance for CT with dye
We do not have any prior creatinines
# Acute kidney injury with a likely stage III CKD
Nephrology following for KRISTI prophylaxis and management
# Left anterior fascicular block, right bundle branch block
# Diet-controlled diabetes-hemoglobin A1c 6.7. Accu-Cheks and sliding scale coverage
# Coronary disease with history of cardiac catheterization with single-vessel disease-RCA complete occlusion with collaterals. Continue aspirin and statin
# Bilateral adrenal gland nodules
# Essential hypertension-losartan on hold
# History of retinal vein occlusion of the right eye in the past
# Obesity with a BMI of 35
# Chronic venous stasis lower extremities
# Ex-smoker
# DVT prophylaxis-Heparin
# Full code
D/W Renal
Part of this note was created using voice recognition system. Occasional wrong word or��sound alike� substitutions may have inadvertently occurred due to the inherent limitations of voice recognition software. If noted kindly bring it to my
attention for correction.
Anticipated Discharge: 24 - 48 hours
Subjective/Interval History
-
Date of Service: June 05, 2025
Objective Data
-
Labs:
Laboratory Results
06/05/25 06/05/25
06:24 13:25
WBC 7.9
Hgb 12.3 L
Hct 38.7 L
Plt Count 205
APTT 119.2 H Pending
Sodium 134 L
Potassium 4.2
Chloride 95 L
Carbon Dioxide 31 H
BUN 46 H
Creatinine 1.7 H
Glucose 137 H
Calcium 9.0
Vital Signs:
Vital Signs
Temp Pulse Resp BP Pulse Ox
98 F 69 16 150/53 97
06/05/25 11:10 06/05/25 11:10 06/05/25 11:10 06/05/25 11:10 06/05/25 11:10
I&O
06/04/25 06/05/25 06/06/25
06:59 06:59 06:59
Intake Total 480 / 480 1200 / 1200
Output Total 2700 / 2700 2125 / 2125
Balance -2220 / -2220 -925 / -925
[2025-06-05 13:57] LABS: APTT 97.7 Sec (23.4-35.0)
--- NOTE | 2025-06-05 15:44 | W.PN.ONC2 ---
Today's Communication / Plan
-
.
Impression
Impression
Clinical stage IV renal cell carcinoma subtype to be determined
HFpEF
renal insufficency
IVC thrombus
RCA occlusion Mar 2025
PAD
Plan
Plan
CT ab/pelvis w IVC when cleared by nephrology
IR to consider renal biopsy depending on CT results
on heparin gtt w plan to transition to eliquis 5mg BID after biospy complete
OP MRI brain planned
Has Dr. Livingston follow up 06/26/2025
Subjective/Objective
Subjective
large volume urine output
denies pain or bleeding
denies SOB or chest pain
Vital Signs:
Vital Signs
Temp Pulse Resp BP Pulse Ox
98 F 69 16 150/53 97
06/05/25 11:10 06/05/25 11:10 06/05/25 11:10 06/05/25 11:10 06/05/25 11:10
Lab Results:
Laboratory Data
WBC 7.9 10^3/uL (4.8-10.8) 06/05/25 06:24
Hgb 12.3 g/dL (13.0-18.0) L 06/05/25 06:24
Plt Count 205 10^3/uL (130-400) 06/05/25 06:24
APTT 97.7 Sec (23.4-35.0) H 06/05/25 13:25
eGFR 39.75 06/05/25 06:24
Physical Exam
HEENT: No Jaundice
Pulmonary: Other (unlabored)
GI: Soft
Extremities: Pulses Present
[2025-06-05 15:46] VITALS: BP 152/63
--- NOTE | 2025-06-05 16:40 | W.PN.CD ---
Today's Communication / Plan
-
Stop IV Lasix
Move to PO Lasix tomorrow, will try 60 mg PO daily
Resume Eliquis when OK with Medicine/renal
Not sure she needs ASA in addition to oral anticoagulation => will stop it
Impression / Plan
-
HFpEF, improving, admit weight 100 kg (06/02/2025)
- weight today (06/05/2025): 96 kg
-echo 06/02/2025: EF 55%, basal inferior HK, mild/mod MR, IVC thrombus visualized
-nephrology consulted as well with CKD3b
-Move to PO Lasix 60 mg one time daily, starting 06/06/2025
CKD3b
Conduction disease
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
- Mechanical AV block crossing LV with known RBBB is not that concerning
- Here this hospital stay is just [facility]
HTN, stable on meds
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
Lipids: declining statin, as outpatient can consider nonstatin meds => most recent LDL 34!! So
Renal cancer - managed by Dr. Livingston. Looks like there is plan for inpatient biopsy
IVC thrombus
-known from history, and also visualized on echo 06/02
-with upcoming biopsy, eliquis is held, and heparin drip will start tonight
-If not thrombus could be tumor
Subjective: Feels better
RHC data 04/07/2025
HEMODYNAMIC DATA (weight was 100 kg)
LV 142/17 (EDP 27) mmHg
AO 136/57 (mean 90) mmHg
RA 17 mmHg
RV 52/13 (EDP 21) mmHg
PA 51/23 (mean 34) mmHg
PCWP 22 mmHg
SaO2 95.9%
SvO2 76.3%
Hb 11.5 g/dL
Weight 100 kg
CO/CI 8.70/4.08 L/min/m2
SVR 671 dsc*-5
PVR 1.4 Wood units
Physical Exam
Vital Signs/Labs
Vital Signs
Temp Pulse Resp BP Pulse Ox
97.5 F 76 18 152/63 96
06/05/25 15:46 06/05/25 15:46 06/05/25 15:46 06/05/25 15:46 06/05/25 15:46
06/04/25 06/05/25 06/06/25
06:59 06:59 06:59
Actual Weight 95.98 kg
06/05/25 06:24
06/05/25 06:24
APTT 97.7 Sec (23.4-35.0) H 06/05/25 13:25
Magnesium 2.3 mg/dl (1.6-2.3) 06/03/25 07:46
Triglycerides 109 mg/dl (10-149) 06/04/25 10:08
LDL Cholesterol, Calc 34 mg/dl 06/04/25 10:08
VLDL Cholesterol, Calc 21 mg/dl (0-30) 06/04/25 10:08
HDL Cholesterol 43 mg/dl 06/04/25 10:08
06/02/25
09:23
Dzu-X-Vosmczjbiqe Pept 841
Physical Exam
Constitutional: No acute distress
EENT: Anicteric
Cardiovascular: Rhythm & rate is regular and Pedal edema is absent
Respiratory: Respiratory effort normal and Lungs clear to auscul.
GI: Soft and Distention absent
Neuro/Psych: Alert
Data Reviewed
-
Date of Service: June 05, 2025
[2025-06-05 17:05] LABS: Glucose - Point of Care 121 mg/dl (70-99)
[2025-06-05 19:55] VITALS: BP 154/57
[2025-06-05 20:15] LABS: APTT 75.2 Sec (23.4-35.0)
[2025-06-05 21:35] LABS: Glucose - Point of Care 123 mg/dl (70-99)
[2025-06-05 23:21] VITALS: BP 153/68
[2025-06-06] MEDS: HEPARIN 25000 UNITS/250 ML IV ×2 (00:30→20:59)
[2025-06-06 03:15] VITALS: BP 141/64
[2025-06-06 03:30] LABS: APTT 59.0 Sec (23.4-35.0)
[2025-06-06] MEDS: HEPARIN 7800 UNITS IV (03:39)
[2025-06-06 07:33] VITALS: BP 143/56
[2025-06-06 07:50] LABS: Glucose - Point of Care 167 mg/dl (70-99)
[2025-06-06] MEDS: MAGNESIUM OXIDE 200 MG PO (07:53)
[2025-06-06] MEDS: NOVOLOG FLEXPEN-LOW RESISTANCE 1 UNITS SC (07:54)
[2025-06-06 08:00] VITALS: BMI 35.1
--- NOTE | 2025-06-06 09:34 | W.PN.CD ---
Today's Communication / Plan
-
- Home dose of Lasix was 20 every other day => not enough, but reports good Urine Output with 20 mg. Patient wants to try Lasix 20 mg a day
- Move Lasix to 20 mg PO daily, follow weights
- Consider adding MRA and SGLT2-I for GDMT for HFpEF => if ok with nephrology
- Resume Eliquis when OK with Medicine/renal
- I saw no seperate indication for ASA in addition to oral anticoagulation => I stopped it on 06/05/2025
Impression / Plan
-
HFpEF, improving,
- admit weight 100 kg (06/02/2025) => not RA 17 and PCWP 22 with a weight of 100 kg back in Mar 2025 (see below)
- weight 06/05/2025: 96 kg
- weight today (06/06/2025): 95.6 kg
- echo 06/02/2025: EF 55%, basal inferior HK, mild/mod MR, IVC thrombus visualized
- nephrology consulted as well with CKD3b
- Home dose of Lasix was 20 every other day => not enough, but reports good Urine Output with 20 mg
- Patient wants to try Lasix 20 mg a day
- Labs pending today
CKD3b
Conduction disease
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
- Mechanical AV block crossing LV with known RBBB is not that concerning
- Here this hospital stay is just [facility] but none in last 24 hours (as of 0800 hrs of 06/06/2025)
HTN, stable on meds
CAD: [employer] of RCA with collaterals, stable, no angina
Lipids: declining statin, as outpatient can consider nonstatin meds => most recent LDL 34!! So
Renal cancer - managed by Dr. Livingston. Looks like there is plan for inpatient biopsy
- Per Oncology: 'Clinical stage IV renal cell carcinoma subtype to be determined'
IVC thrombus (vs Tumor)
-known from history, and also visualized on echo 06/02
-with upcoming biopsy, Eliquis is held, and heparin drip will start tonight
-If not thrombus could be tumor
Subjective: Feels better
RHC data 04/07/2025
HEMODYNAMIC DATA (weight was 100 kg)
LV 142/17 (EDP 27) mmHg
AO 136/57 (mean 90) mmHg
RA 17 mmHg
RV 52/13 (EDP 21) mmHg
PA 51/23 (mean 34) mmHg
PCWP 22 mmHg
SaO2 95.9%
SvO2 76.3%
Hb 11.5 g/dL
Weight 100 kg
CO/CI 8.70/4.08 L/min/m2
SVR 671 dsc*-5
PVR 1.4 Wood units
Physical Exam
Vital Signs/Labs
Vital Signs
Temp Pulse Resp BP Pulse Ox
97.3 F 70 17 143/56 95
06/06/25 07:33 06/06/25 07:33 06/06/25 07:33 06/06/25 07:33 06/06/25 07:33
06/05/25 06/06/25 06/07/25
06:59 06:59 06:59
Actual Weight 96.026 kg 95.572 kg
06/05/25 06:24
APTT 59.0 Sec (23.4-35.0) H 06/06/25 02:39
Magnesium 2.3 mg/dl (1.6-2.3) 06/03/25 07:46
Triglycerides 109 mg/dl (10-149) 06/04/25 10:08
LDL Cholesterol, Calc 34 mg/dl 06/04/25 10:08
VLDL Cholesterol, Calc 21 mg/dl (0-30) 06/04/25 10:08
HDL Cholesterol 43 mg/dl 06/04/25 10:08
06/02/25
09:23
Mwh-Q-Crzdrywfkma Pept 841
Physical Exam
Constitutional: No acute distress
EENT: Anicteric
Cardiovascular: Rhythm & rate is regular and Pedal edema is absent
Respiratory: Respiratory effort normal and Lungs clear to auscul.
GI: Soft
Neuro/Psych: AO x 3
Data Reviewed
-
Date of Service: June 06, 2025
[2025-06-06 10:22] LABS: APTT > 200 Sec (23.4-35.0)
--- NOTE | 2025-06-06 10:37 | PTCARENOTE ---
Pt's PTT resulted >200. Heparin gtt paused at 1028 and provider tiger texted at 1029. Gtt will be paused for 2 hours per protocol and restarted at a lower rate per protocol.
[2025-06-06 11:03] VITALS: BP 149/56
[2025-06-06 11:05] LABS: Blood Urea Nitrogen 42 mg/dl (9-20); Carbon Dioxide 31 mmol/L (22-30); Chloride 98 mmol/L (98-107); Estimated Creatinine Clearance 38 ml/min; Glucose 197 mg/dl (70-99); Sodium 136 mmol/L (135-145); eGFR 42.75
[2025-06-06 11:12] LABS: Calcium 9.5 mg/dl (8.4-10.2); Potassium 4.4 mmol/L (3.5-5.1)
[2025-06-06 11:40] LABS: Glucose - Point of Care 122 mg/dl (70-99)
[2025-06-06] MEDS: NOVOLOG FLEXPEN-LOW RESISTANCE SC ×2 (11:52→16:59)
--- NOTE | 2025-06-06 12:51 | W.PN.NEPH.PH ---
Today's Communication / Plan
-
follow BMP
Assessment/Plan
-
Impression:
decompensated congestive heart failure/Echocardiogram\\EF of 55%, mild to moderate MR, basal inferior hypokinesis, thrombus in IVC
stage IV renal cancer
CKD stage IIIA
IVC thrombus despite oral anticoagulation therapy
hypertension
bilateral adrenal gland nodules
Plan:
follow BMP
If Cr improves tomorrow ~1.4, can move forward with CT/Biopsy with IVF prophylaxis
-
-
Date of Service: June 06, 2025
CC / HPI / ROS
-
Chief Complaint:
acute kidney injury
History of Present Illness:
ELLIOT/CR lower 1.6
hemodynamically stable
po lasix today
Review of Systems:
no CP/SOB
Labs
-
Labs:
WBC 7.9 10^3/uL (4.8-10.8) 06/05/25 06:24
RBC 4.65 10^6/uL (4.70-6.10) L 06/05/25 06:24
Hgb 12.3 g/dL (13.0-18.0) L 06/05/25 06:24
Hct 38.7 % (39.0-52.0) L 06/05/25 06:24
Plt Count 205 10^3/uL (130-400) 06/05/25 06:24
Sodium 136 mmol/L (135-145) 06/06/25 09:39
Potassium 4.4 mmol/L (3.5-5.1) 06/06/25 09:39
Chloride 98 mmol/L (98-107) 06/06/25 09:39
Carbon Dioxide 31 mmol/L (22-30) H 06/06/25 09:39
BUN 42 mg/dl (9-20) H 06/06/25 09:39
Creatinine 1.6 mg/dL (0.7-1.3) H 06/06/25 09:39
eGFR 42.75 06/06/25 09:39
Glucose 197 mg/dl (70-99) H 06/06/25 09:39
Calcium 9.5 mg/dl (8.4-10.2) 06/06/25 09:39
Hoq-U-Btrikukzbvk Pept 841 pg/ml 06/02/25 09:23
Albumin 4.5 g/dl (3.5-5.0) 06/02/25 09:23
Physical Exam
-
Vital Signs:
Vital Signs
Temp Pulse Resp BP Pulse Ox
98.4 F 71 17 149/56 96
06/06/25 11:03 06/06/25 11:03 06/06/25 11:03 06/06/25 11:03 06/06/25 11:03
Cardiovascular:: Regular rate and rhythm
Respiratory:: Bilateral: Coarse
Lung Excursion:: Normal
Abdomen:: Nontender and Soft
Bowel Sounds:: Normal
Extremity Edema:: None: Bilateral:
--- NOTE | 2025-06-06 12:52 | W.PN.HOSP.TC ---
Today's Communication/Plan
-
Continue heparin drip with PTT monitoring closely
Watch creatinine
CT when able
Assessment / Plan
Assessment / Plan
80-year-old with history of CHF and recent cardiac cath showed occlusion of RCA (04/07/2025) and advised for medical treatment presented with lower extremity edema
Echo-normal LV size, systolic function. EF 55%. Basal inferior hypokinesis. Mild to moderate MR. Thrombus in the IVC.
CVS: S1-S2 normal
Chest: CTA B/L
Abdomen: Soft, NT / Bowel sounds present
Extremities: No edema
# Progressive lower extremity edema with exertional shortness of breath
Acute HFpEF
Treated with IV Lasix ( Now changed to p.o.). Patient wanted to be only on 20 mg
Monitor weights-improved
Intake output charting and CHF education
Cardiology following
GMDT-not possible now because of renal function. Hold off on MRI, SGLT2 inhibitors now especially since we are looking at contrast-enhanced CT
Weight was 100 kg on admission note 95.57 kg.
# IVC thrombus recently discovered-was on Eliquis 2.5 twice daily which was increased to 5 twice daily. Currently on IV heparin for renal biopsy
# Stage IV renal cell cancer-awaiting MRI of the brain before to continue treatments-scheduled for 06/14/2024
Hematology input noted recommended renal biopsy-discussed with IR -pt needs CT of the abdomen and pelvis with contrast prior to the biopsy
Mediastinal and right hilar lymphadenopathy noted on CT
Because of CKD nephrology has been holding off on clearance for CT with dye
We do not have any prior creatinines
Discussed with IR. Need aspirin also held last dose of aspirin 06/05/2025
# Acute kidney injury with a likely stage III CKD
Nephrology following for KRISTI prophylaxis and management
# Left anterior fascicular block, right bundle branch block
# Diet-controlled diabetes-hemoglobin A1c 6.7. Accu-Cheks and sliding scale coverage
# Coronary disease with history of cardiac catheterization with single-vessel disease-RCA complete occlusion with collaterals. Continue aspirin and statin
# Bilateral adrenal gland nodules
# Essential hypertension-losartan on hold
# History of retinal vein occlusion of the right eye in the past
# Obesity with a BMI of 35
# Chronic venous stasis lower extremities
# Ex-smoker
# DVT prophylaxis-Heparin
# Full code
D/W Renal, cardiology, interventional radiology, hematology
Part of this note was created using voice recognition system. Occasional wrong word or��sound alike� substitutions may have inadvertently occurred due to the inherent limitations of voice recognition software. If noted kindly bring it to my
attention for correction.
Anticipated Discharge: > 48 hours
Subjective/Interval History
-
Date of Service: June 06, 2025
Objective Data
-
Labs:
Laboratory Results
06/06/25 06/06/25
02:39 09:39
APTT 59.0 H > 200 H*
Sodium 136
Potassium 4.4
Chloride 98
Carbon Dioxide 31 H
BUN 42 H
Creatinine 1.6 H
Glucose 197 H
Calcium 9.5
Vital Signs:
Vital Signs
Temp Pulse Resp BP Pulse Ox
98.4 F 71 17 149/56 96
06/06/25 11:03 06/06/25 11:03 06/06/25 11:03 06/06/25 11:03 06/06/25 11:03
I&O
06/05/25 06/06/25 06/07/25
06:59 06:59 06:59
Intake Total 1200 / 1200 960 / 960
Output Total 2124 / 2124 2099 / 2099
Balance -925 / -925 -1140 / -1140
--- NOTE | 2025-06-06 14:07 | CM ---
patient seen at bedside
chart reviewed
offered vn-declines
PLAN: Home, when stable, declines vn
transport self
[2025-06-06 15:10] VITALS: BP 158/55
[2025-06-06 16:45] LABS: Glucose - Point of Care 120 mg/dl (70-99)
[2025-06-06 19:00] VITALS: BP 157/60
[2025-06-06 20:13] LABS: APTT 78.3 Sec (23.4-35.0)
[2025-06-06 21:24] LABS: Glucose - Point of Care 175 mg/dl (70-99)
[2025-06-06 23:00] VITALS: BP 150/61
[2025-06-07 02:37] LABS: APTT 65.9 Sec (23.4-35.0)
[2025-06-07] MEDS: HEPARIN 3900 UNITS IV (02:48)
[2025-06-07 03:00] VITALS: BP 153/63
[2025-06-07 07:25] VITALS: BP 174/68
[2025-06-07 07:57] LABS: Glucose - Point of Care 146 mg/dl (70-99)
[2025-06-07 08:03] VITALS: BMI 35.2
[2025-06-07] MEDS: NOVOLOG FLEXPEN-LOW RESISTANCE SC ×3 (08:20→16:55)
[2025-06-07] MEDS: LASIX 20 MG PO (08:20)
[2025-06-07] MEDS: MAGNESIUM OXIDE 200 MG PO (08:21)
[2025-06-07 09:07] LABS: Hematocrit 42.1 % (39.0-52.0); Hemoglobin 13.5 g/dL (13.0-18.0); Mean Corp Hgb Conc. 32.1 g/dL (33.0-37.0); Mean Corpuscular Volume 84.7 fL (80.0-94.0); Platelet Count 206 10^3/uL (130-400); Red Cell Dist. Width 13.7 % (11.5-14.5)
[2025-06-07 09:20] LABS: APTT 99.1 Sec (23.4-35.0)
[2025-06-07 10:53] LABS: Blood Urea Nitrogen 36 mg/dl (9-20); Calcium 9.6 mg/dl (8.4-10.2); Carbon Dioxide 29 mmol/L (22-30); Chloride 98 mmol/L (98-107); Estimated Creatinine Clearance 40 ml/min; Glucose 168 mg/dl (70-99); Potassium 4.4 mmol/L (3.5-5.1); Sodium 137 mmol/L (135-145); eGFR 46.19
[2025-06-07 11:17] VITALS: BP 163/60
[2025-06-07 12:15] LABS: Glucose - Point of Care 104 mg/dl (70-99)
--- NOTE | 2025-06-07 12:51 | PN.CDI ---
Addendum entered and electronically signed by Virgie Medrano MD 06/07/25 13:52:
Documentation is complete at this time.
Original Note:
CDI
- -
CDI:
Physician Documentation Request
Admit Date: 06/02/25 13:48
Dear Doctor,
Patient admitted for heart failure.
06/02 Echo report: 'Thrombus visualized in the inferior vena cava.'
06/06 Hospitalist PN: 'IVC thrombus recently discovered-was on Eliquis 2.5 twice daily which was increased to 5 twice daily. Currently on IV heparin for renal biopsy'
Clarify which of the following accurately represents the acuity of the IVC thrombus. Possible options might include:
Acute on Chronic
Chronic stable condition
____ Other
Use of terms such as suspected, likely, concern for, or probable (associated with a specific diagnosis that is being evaluated, monitored, or treated as if it exists) are acceptable and can be coded in the inpatient setting, when documented at the
time of discharge.
Thank you,
Sherie Rivers RN, BSN
CDI Specialist
Available via [facility] text
Please use your independent medical judgment in providing your response.
--- NOTE | 2025-06-07 13:30 | W.PN.NEPH.PH ---
Today's Communication / Plan
-
ok for CT with iv prophylaxis
Assessment/Plan
-
Impression:
decompensated congestive heart failure/Echocardiogram\\EF of 55%, mild to moderate MR, basal inferior hypokinesis, thrombus in IVC
stage IV renal cancer
CKD stage IIIA
IVC thrombus despite oral anticoagulation therapy
hypertension
bilateral adrenal gland nodules
Plan:
follow BMP
creatinine stable can move forward with CT/Biopsy with IVF prophylaxis
discussed with primary team
-
-
Date of Service: June 07, 2025
CC / HPI / ROS
-
Chief Complaint:
acute kidney injury
History of Present Illness:
ELLIOT/CR lower 1.5
hemodynamically stable
po lasix today
Review of Systems:
no CP/SOB
Labs
-
Labs:
WBC 8.6 10^3/uL (4.8-10.8) 06/07/25 08:35
RBC 4.97 10^6/uL (4.70-6.10) 06/07/25 08:35
Hgb 13.5 g/dL (13.0-18.0) 06/07/25 08:35
Hct 42.1 % (39.0-52.0) 06/07/25 08:35
Plt Count 206 10^3/uL (130-400) 06/07/25 08:35
Sodium 137 mmol/L (135-145) 06/07/25 08:35
Potassium 4.4 mmol/L (3.5-5.1) 06/07/25 08:35
Chloride 98 mmol/L (98-107) 06/07/25 08:35
Carbon Dioxide 29 mmol/L (22-30) 06/07/25 08:35
BUN 36 mg/dl (9-20) H 06/07/25 08:35
Creatinine 1.5 mg/dL (0.7-1.3) H 06/07/25 08:35
eGFR 46.19 06/07/25 08:35
Glucose 168 mg/dl (70-99) H 06/07/25 08:35
Calcium 9.6 mg/dl (8.4-10.2) 06/07/25 08:35
Zgn-G-Xvnlqetdfnt Pept 841 pg/ml 06/02/25 09:23
Albumin 4.5 g/dl (3.5-5.0) 06/02/25 09:23
Physical Exam
-
Vital Signs:
Vital Signs
Temp Pulse Resp BP Pulse Ox
99.0 F 71 17 163/60 95
06/07/25 11:17 06/07/25 11:17 06/07/25 11:17 06/07/25 11:17 06/07/25 11:17
Cardiovascular:: Regular rate and rhythm
Respiratory:: Bilateral: Coarse
Lung Excursion:: Normal
Abdomen:: Nontender and Soft
Bowel Sounds:: Normal
Extremity Edema:: None: Bilateral:
[place] Catheter: No
--- NOTE | 2025-06-07 13:36 | W.PN.CD ---
Today's Communication / Plan
-
Cardiology will sign off
Pt will see his outside molecular technologist
Please call with questions
Impression / Plan
-
HFpEF, improving,
- admit weight 100 kg (06/02/2025) => not RA 17 and PCWP 22 with a weight of 100 kg back in Mar 2025 (see below)
- weight 06/05/2025: 96 kg
- weight 06/06/2025: 95.6 kg
- Weight today 06/07/2025: 95.8 kg
- echo 06/02/2025: EF 55%, basal inferior HK, mild/mod MR, IVC thrombus visualized
- nephrology consulted as well with CKD3b
- Home dose of Lasix was 20 every other day => not enough, but reports good Urine Output with 20 mg
- Patient wants to try Lasix 20 mg a day
- Labs: Cr 1.5 (best here was 1.4 on 06/02/2025)
CKD3b
Conduction disease
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
- Mechanical AV block crossing LV with known RBBB is not that concerning
- Here this hospital stay is just [facility] but none in last 24 hours (as of 0800 hrs of 06/06/2025)
HTN, stable on meds
CAD: OFFICE SPEC of RCA with collaterals, stable, no angina => Single agent Eliquis is fine for CAD. No ASA with Eliquis
Lipids: declining statin, as outpatient can consider nonstatin meds => most recent LDL 34!! So
Renal cancer - managed by Dr. Livingston. Looks like there is plan for inpatient biopsy
- Per Oncology: 'Clinical stage IV renal cell carcinoma subtype to be determined'
IVC thrombus (vs Tumor)
-known from history, and also visualized on echo 06/02
-with upcoming biopsy, Eliquis is held, and heparin drip
-If not thrombus could be tumor
Subjective: Feels better
RHC data 04/07/2025
HEMODYNAMIC DATA (weight was 100 kg)
LV 142/17 (EDP 27) mmHg
AO 136/57 (mean 90) mmHg
RA 17 mmHg
RV 52/13 (EDP 21) mmHg
PA 51/23 (mean 34) mmHg
PCWP 22 mmHg
SaO2 95.9%
SvO2 76.3%
Hb 11.5 g/dL
Weight 100 kg
CO/CI 8.70/4.08 L/min/m2
SVR 671 dsc*-5
PVR 1.4 Wood units
Physical Exam
Vital Signs/Labs
Vital Signs
Temp Pulse Resp BP Pulse Ox
99.0 F 71 17 163/60 95
06/07/25 11:17 06/07/25 11:17 06/07/25 11:17 06/07/25 11:17 06/07/25 11:17
06/06/25 06/07/25 06/08/25
06:59 06:59 06:59
Actual Weight 96.026 kg 95.572 kg 95.85 kg
06/07/25 08:35
06/07/25 08:35
APTT 99.1 Sec (23.4-35.0) H 06/07/25 08:35
Magnesium 2.3 mg/dl (1.6-2.3) 06/03/25 07:46
Triglycerides 109 mg/dl (10-149) 06/04/25 10:08
LDL Cholesterol, Calc 34 mg/dl 06/04/25 10:08
VLDL Cholesterol, Calc 21 mg/dl (0-30) 06/04/25 10:08
HDL Cholesterol 43 mg/dl 06/04/25 10:08
06/02/25
09:23
Use-X-Emcohwiqzst Pept 841
Physical Exam
Constitutional: No acute distress
EENT: Anicteric
Cardiovascular: Rhythm & rate is regular and Pedal edema is absent
Respiratory: Respiratory effort normal and Lungs clear to auscul.
GI: Soft and Distention absent
Neuro/Psych: AO x 3
Data Reviewed
-
Date of Service: June 07, 2025
--- NOTE | 2025-06-07 14:09 | W.PN.HOSP.TC ---
Today's Communication/Plan
-
CT A/P
BMP in am
Assessment / Plan
Assessment / Plan
80-year-old with history of CHF and recent cardiac cath showed occlusion of RCA (04/07/2025) and advised for medical treatment presented with lower extremity edema
Echo-normal LV size, systolic function. EF 55%. Basal inferior hypokinesis. Mild to moderate MR. Thrombus in the IVC.
CVS: S1-S2 normal
Chest: CTA B/L
Abdomen: Soft, NT , Bowel sounds present
Extremities: No edema
# Progressive lower extremity edema with exertional shortness of breath
Acute HFpEF
Treated with IV Lasix ( Now changed to p.o.). Patient wanted to be only on 20 mg
Monitor weights-improved and stable.
Intake output charting and CHF education
Cardiology following
GMDT-not possible now because of renal function. Hold off on MRI, SGLT2 inhibitors now especially since we are looking at contrast-enhanced CT
Weight was 100 kg on admission note 95.85 kg.
# IVC thrombus recently discovered-was on Eliquis 2.5 twice daily which was increased to 5 twice daily. Currently on IV heparin for renal biopsy
# Stage IV renal cell cancer-awaiting MRI of the brain before to continue treatments-scheduled for 06/14/2024
Hematology input noted recommended renal biopsy-discussed with IR -pt needs CT of the abdomen and pelvis with contrast prior to the biopsy
Mediastinal and right hilar lymphadenopathy noted on CT
We do not have any prior creatinines- Pt says he usually runs 1.5 range
Discussed with IR. Need aspirin also held last dose of aspirin 06/05/2025
Spoke to Mayi Linares and Susan today
CT ordered with renal prophylaxis ( by Renal)
IR will do Bx tomorrow or thursday
# Acute kidney injury with a likely stage III CKD
Nephrology following for KRISTI prophylaxis and management
# Left anterior fascicular block, right bundle branch block
# Diet-controlled diabetes-hemoglobin A1c 6.7. Accu-Cheks and sliding scale coverage
# Coronary disease with history of cardiac catheterization with single-vessel disease-RCA complete occlusion with collaterals. Continue aspirin and statin
# Bilateral adrenal gland nodules
# Essential hypertension-losartan on hold
# History of retinal vein occlusion of the right eye in the past
# Obesity with a BMI of 35
# Chronic venous stasis lower extremities
# Ex-smoker
# DVT prophylaxis-Heparin
# Full code
D/W Renal, interventional radiology
Offered to talk to family. Pt Declined says his is aware of what is going on.
Part of this note was created using voice recognition system. Occasional wrong word or��sound alike� substitutions may have inadvertently occurred due to the inherent limitations of voice recognition software. If noted kindly bring it to my
attention for correction.
Anticipated Discharge: > 48 hours
Subjective/Interval History
-
Date of Service: June 07, 2025
Objective Data
-
Labs:
Laboratory Results
06/07/25 06/07/25 06/07/25
02:14 08:35 15:30
WBC 8.6
Hgb 13.5
Hct 42.1
Plt Count 206
APTT 65.9 H 99.1 H Pending
Sodium 137
Potassium 4.4
Chloride 98
Carbon Dioxide 29
BUN 36 H
Creatinine 1.5 H
Glucose 168 H
Calcium 9.6
Vital Signs:
Vital Signs
Temp Pulse Resp BP Pulse Ox
99.0 F 71 17 163/60 95
06/07/25 11:17 06/07/25 11:17 06/07/25 11:17 06/07/25 11:17 06/07/25 11:17
I&O
06/06/25 06/07/25 06/08/25
06:59 06:59 06:59
Intake Total 960 / 960 1040 / 1040
Output Total 2099 / 2099 800 / 800
Balance -1140 / -1140 240 / 240
[2025-06-07] MEDS: HEPARIN 25000 UNITS/250 ML IV (14:34)
[2025-06-07 15:00] VITALS: BP 144/65
[2025-06-07 16:54] LABS: Glucose - Point of Care 105 mg/dl (70-99)
[2025-06-07 17:03] LABS: APTT 57.0 Sec (23.4-35.0)
[2025-06-07] MEDS: HEPARIN 7800 UNITS IV (17:17)
--- NOTE | 2025-06-07 18:03 | PTCARENOTE ---
approx 14:45, pt was taken down to CT, at 15:30, the next PTT was due, but pt was off the floor. CT nurse disconnected his Heparin for at least 15-20 minutes, was going to cancel test due to not being able to get a larger IV inserted. [employer] employee
was finally able to gain access and flaquito pt's PTT while he was in the CT room. This nurse brought sample up to floor and manually added pt and sample to [employer]. Sent to lab for processing w/chart label on specimen. Lab was called about this
particular draw and they were able to return result effectively to the [facility]. Pt's PTT was likely somewhat lower than expected due to 15-20 min disconnect.
[2025-06-07 19:00] VITALS: BP 166/66
[2025-06-07 21:29] LABS: Glucose - Point of Care 138 mg/dl (70-99)
[2025-06-07 23:00] VITALS: BP 160/76
[2025-06-08] VITALS (12 sets, daily range): BP systolic 80–160; BP diastolic 58–81; BMI 35.2
[2025-06-08 00:09] LABS: APTT > 200 Sec (23.4-35.0)
[2025-06-08 07:56] LABS: Glucose - Point of Care 151 mg/dl (70-99)
[2025-06-08] MEDS: MAGNESIUM OXIDE 200 MG PO (08:10)
[2025-06-08] MEDS: LASIX 20 MG PO (08:10)
[2025-06-08] MEDS: NOVOLOG FLEXPEN-LOW RESISTANCE 1 UNITS SC (08:11)
--- NOTE | 2025-06-08 08:30 | W.PN.ONC2 ---
Today's Communication / Plan
-
.
Impression
Impression
clinical stage IV RCC, subtype TBD, CT ab/pelvis w & w/o IVC confirms large mass right kidney w extensive right RP LN, 1.9cm right hepatic lesion, b/l adrenal masses, and nonspecific small pulmonary nodules measuring up to 3mm
tumor thrombus retrohepatic & suprahepatic IVC extending to the right atrium (on CT and Echo)
HFpEF
renal insufficiency
IVC thrombus
RCA occlusion Mar 2025
PAD
Plan
Plan
IR to consider biopsy
on heparin gtt w plan to transition to eliquis 5mg BID after biopsy complete
OP MRI brain planned 06/[address] Livingston follow up 06/26/2025
Subjective/Objective
Subjective
afebrile, no hypoxia or hypotension
denies pain, deneis bleeding
Vital Signs:
Vital Signs
Temp Pulse Resp BP Pulse Ox
99.2 F 83 16 149/76 95
06/08/25 07:44 06/08/25 08:10 06/08/25 07:44 06/08/25 08:10 06/08/25 07:44
Lab Results:
Laboratory Data
WBC 8.6 10^3/uL (4.8-10.8) 06/07/25 08:35
Hgb 13.5 g/dL (13.0-18.0) 06/07/25 08:35
Plt Count 206 10^3/uL (130-400) 06/07/25 08:35
APTT 57.0 Sec (23.4-35.0) H 06/07/25 Unknown
eGFR 46.19 06/07/25 08:35
Physical Exam
HEENT: No Jaundice
Pulmonary:unlabored
GI: Soft
Extremities: Pulses Present
[2025-06-08 09:00] LABS: APTT 86.4 Sec (23.4-35.0)
[2025-06-08 09:34] LABS: Blood Urea Nitrogen 28 mg/dl (9-20); Calcium 9.1 mg/dl (8.4-10.2); Carbon Dioxide 26 mmol/L (22-30); Chloride 99 mmol/L (98-107); Estimated Creatinine Clearance 40 ml/min; Glucose 144 mg/dl (70-99); Potassium 4.3 mmol/L (3.5-5.1); Sodium 135 mmol/L (135-145); eGFR 46.19
[2025-06-08] MEDS: HEPARIN 25000 UNITS/250 ML IV (09:49)
[2025-06-08 11:34] LABS: Glucose - Point of Care 141 mg/dl (70-99)
[2025-06-08] MEDS: NOVOLOG FLEXPEN-LOW RESISTANCE SC ×2 (12:11→19:46)
--- NOTE | 2025-06-08 12:24 | W.PN.NEPH.PH ---
Today's Communication / Plan
-
From renal standpoint okay for discharge pending possible
Assessment/Plan
-
Impression:
decompensated congestive heart failure/Echocardiogram\\EF of 55%, mild to moderate MR, basal inferior hypokinesis, thrombus in IVC
stage IV renal cancer
CKD stage IIIA
IVC thrombus despite oral anticoagulation therapy
hypertension
bilateral adrenal gland nodules
Plan:
follow BMP
creatinine stable status post CT with contrast and IVF prophylaxis
Possible IR biopsy per oncology
-
-
Date of Service: June 08, 2025
CC / HPI / ROS
-
Chief Complaint:
acute kidney injury
History of Present Illness:
ELLIOT/CR lower 1.5
hemodynamically stable
Review of Systems:
no CP/SOB
Labs
-
Labs:
WBC 8.6 10^3/uL (4.8-10.8) 06/07/25 08:35
RBC 4.97 10^6/uL (4.70-6.10) 06/07/25 08:35
Hgb 13.5 g/dL (13.0-18.0) 06/07/25 08:35
Hct 42.1 % (39.0-52.0) 06/07/25 08:35
Plt Count 206 10^3/uL (130-400) 06/07/25 08:35
Sodium 135 mmol/L (135-145) 06/08/25 08:11
Potassium 4.3 mmol/L (3.5-5.1) 06/08/25 08:11
Chloride 99 mmol/L (98-107) 06/08/25 08:11
Carbon Dioxide 26 mmol/L (22-30) 06/08/25 08:11
BUN 28 mg/dl (9-20) H 06/08/25 08:11
Creatinine 1.5 mg/dL (0.7-1.3) H 06/08/25 08:11
eGFR 46.19 06/08/25 08:11
Glucose 144 mg/dl (70-99) H 06/08/25 08:11
Calcium 9.1 mg/dl (8.4-10.2) 06/08/25 08:11
Fzt-J-Jgnptyqdfym Pept 841 pg/ml 06/02/25 09:23
Albumin 4.5 g/dl (3.5-5.0) 06/02/25 09:23
Physical Exam
-
Vital Signs:
Vital Signs
Temp Pulse Resp BP Pulse Ox
98.6 F 76 16 155/59 96
06/08/25 11:15 06/08/25 11:15 06/08/25 11:15 06/08/25 11:15 06/08/25 11:15
Cardiovascular:: Regular rate and rhythm
Respiratory:: Bilateral: Coarse
Lung Excursion:: Normal
Abdomen:: Nontender and Soft
Bowel Sounds:: Normal
Extremity Edema:: None: Bilateral:
[place] Catheter: No
--- NOTE | 2025-06-08 13:44 | CM ---
patient seen at bedside
tentative dc tomorrow per hospitalist
patient declines VN
states has his car here - CM called security & spoke with Marquez ([phone])
states they have a shuttle until 3pm to take him to his car (wheel to ER)
IMM explained & signed. In chart
PLAN: Home, no needs declines vn
drove self to hospital
[2025-06-08] MEDS: NSS 1000 IV (13:47)
--- NOTE | 2025-06-08 13:56 | W.PN.HOSP.TC ---
Today's Communication/Plan
-
For retroperitoneal lymph node biopsy today
Antihypertensives may need to be addressed as blood pressure is slowly creeping up
BMP and CBC in the morning
Restart anticoagulation when okay with interventional radiology
Assessment / Plan
Assessment / Plan
80-year-old with history of CHF and recent cardiac cath showed occlusion of RCA (04/07/2025) and advised for medical treatment presented with lower extremity edema
Echo-normal LV size, systolic function. EF 55%. Basal inferior hypokinesis. Mild to moderate MR. Thrombus in the IVC.
CT abdomen pelvis-renal protocol-large mass within the mid/lower pole of the right kidney with extensive right retropectoral lymphadenopathy consistent with malignancy. Large right retropectoral lymph node extending into the IVC at the region of
the right renal vein. Tumor thrombus within the retrohepatic and suprahepatic IVC extending into the right atrium. 1.9 cm enhancing lesion within the inferior right hepatic lobe adjacent to the gallbladder fossa concerning for hepatic metastasis.
Bilateral adrenal masses which are likely metastasis. Partially visualized subcarinal lymph node likely metastasis similar to appearance from previous CT. Nonspecific small nodules in the lung galvin measuring up to 3 mm metastatic pulmonary
nodules cannot be excluded
CVS: S1-S2 normal
Chest: CTA B/L
Abdomen: Soft, NT , Bowel sounds present
Extremities: No edema
Occasional right flank pain
# Progressive lower extremity edema with exertional shortness of breath
Acute HFpEF
Treated with IV Lasix ( Now changed to p.o.). Patient wanted to be only on 20 mg
Monitor weights-improved and stable.
Intake output charting and CHF education
Cardiology following
GMDT-not possible now because of renal function. Hold off on MRI, SGLT2 inhibitors now especially since we are looking at contrast-enhanced CT
Weight was 100 kg on admission note 96.0 kg.
# IVC thrombus recently discovered-was on Eliquis 2.5 twice daily which was increased to 5 twice daily. Transition to IV heparin for renal biopsy- Held for Biopsy today. Restart Eliquis 5 mg twice daily when okay with IRAD
# Stage IV renal cell cancer-awaiting MRI of the brain before to continue treatments-scheduled for 06/14/2024
Mediastinal and right hilar lymphadenopathy noted on CT
We do not have any prior creatinines- Pt says he usually runs 1.[address] scan as above. Plan is for retroperitoneal lymph node biopsy today 06/08/2025
# Acute kidney injury with a likely stage III CKD
Nephrology following for KRISTI prophylaxis and management
# Left anterior fascicular block, right bundle branch block
# Diet-controlled diabetes-hemoglobin A1c 6.7. Accu-Cheks and sliding scale coverage
# Coronary disease with history of cardiac catheterization with single-vessel disease-RCA complete occlusion with collaterals. Continue aspirin and statin
# Bilateral adrenal gland nodules
# Essential hypertension-losartan on hold. BP creeping up. May need to restart or add another antihypertensive soon.
# History of retinal vein occlusion of the right eye in the past
# Obesity with a BMI of 35
# Chronic venous stasis lower extremities
# Ex-smoker
# DVT prophylaxis-Heparin held now for biopsy. Restart Eliquis when okay with interventional radiology
# Full code
D/W interventional radiology
Discussed with oncology
Discussed with case management
Offered to talk to family. Pt Declined says his is aware of what is going on.
Part of this note was created using voice recognition system. Occasional wrong word or��sound alike� substitutions may have inadvertently occurred due to the inherent limitations of voice recognition software. If noted kindly bring it to my
attention for correction.
Anticipated Discharge: Within 24 hours
Subjective/Interval History
-
Date of Service: June 08, 2025
Objective Data
-
Labs:
Laboratory Results
06/08/25 06/08/25
08:11 15:15
APTT 86.4 H Pending
Sodium 135
Potassium 4.3
Chloride 99
Carbon Dioxide 26
BUN 28 H
Creatinine 1.5 H
Glucose 144 H
Calcium 9.1
Vital Signs:
Vital Signs
Temp Pulse Resp BP Pulse Ox
98.6 F 76 16 155/59 96
06/08/25 11:15 06/08/25 11:15 06/08/25 11:15 06/08/25 11:15 06/08/25 13:13
I&O
06/07/25 06/08/25 06/09/25
06:59 06:59 06:59
Intake Total 1040 / 1040 480 / 480
Output Total 800 / 800
Balance 240 / 240 480 / 480
--- NOTE | 2025-06-08 14:44 | PTCARENOTE ---
pt pre-biopsy fluids started at 1347, IRAD aware to run 288mL/hr for one hour, then 96mL for next 5 hr. (Diodato order from 05/1725)
[2025-06-08 17:25] LABS: Glucose - Point of Care 110 mg/dl (70-99)
--- NOTE | 2025-06-08 19:47 | PTCARENOTE ---
pt returned from IRAD after scheduled biopsy. Current heparin order was and still is on hold. Per Dr Medrano's update note, pt was expected to transition back to Eliquis after the biopsy, with input from radiology, but no actual order was placed for
such. There was no order to continue heparin, nor re-start Eliquis, giving patient no bridge. Per pharmacy, no orders were in for patient. Dr Mejia relayed to Dr Medrano that the Eliquis would start tomorrow morning, 5mg BID and heparin order was
to remain on hold. Verbally reconfirmed with Dr Medrano
[2025-06-08 21:37] LABS: Glucose - Point of Care 153 mg/dl (70-99)
--- NOTE | 2025-06-08 23:16 | W.PN.UPDATE ---
Update Note
Progress Note Update
per D/W LINDA gold to start AC in am , will start Eliquis tomorrow am.
[2025-06-09 03:04] VITALS: BP 148/59
[2025-06-09 05:44] VITALS: BMI 35.3
[2025-06-09 06:57] LABS: Hematocrit 38.9 % (39.0-52.0); Hemoglobin 12.5 g/dL (13.0-18.0); Mean Corp Hgb Conc. 32.1 g/dL (33.0-37.0); Mean Corpuscular Volume 82.9 fL (80.0-94.0); Nucleated Red Blood Cells % 0 % (-); Platelet Count 188 10^3/uL (130-400); Red Cell Dist. Width 13.8 % (11.5-14.5)
[2025-06-09 07:24] LABS: Blood Urea Nitrogen 29 mg/dl (9-20); Calcium 9.4 mg/dl (8.4-10.2); Carbon Dioxide 26 mmol/L (22-30); Chloride 98 mmol/L (98-107); Estimated Creatinine Clearance 38 ml/min; Glucose 144 mg/dl (70-99); Potassium 4.6 mmol/L (3.5-5.1); Sodium 134 mmol/L (135-145); eGFR 42.75
[2025-06-09 07:26] VITALS: BP 167/66
[2025-06-09 07:41] LABS: Glucose - Point of Care 160 mg/dl (70-99)
[2025-06-09] MEDS: ELIQUIS 5 MG PO (08:23)
[2025-06-09] MEDS: MAGNESIUM OXIDE 200 MG PO (08:23)
[2025-06-09] MEDS: NOVOLOG FLEXPEN-LOW RESISTANCE 1 UNITS SC (08:24)
[2025-06-09] MEDS: LASIX 20 MG PO (08:24)
[2025-06-09] MEDS: NORVASC 5 MG PO (09:07)
[2025-06-09 10:49] VITALS: BP 103/58
--- NOTE | 2025-06-09 11:25 | W.DCSUMMARY ---
Discharge Summary
Discharge Data
Date of Admission: 06/02/25
Date of Discharge: 06/09/25
Total time spent discharging patient (in min): 51
-
Pending Results: No
Hospital Course
Mr. Kenny is an 80-year-old male with a medical history of stage IV renal cell carcinoma (recently diagnosed, right kidney mass with extensive right RP LN, mets to bilateral adrenal glands, right hepatic lesion, small nonspecific pulmonary nodule),
IVC thrombus (on Eliquis), CAD (recent cardiac cath 03/2025 showing complete occlusion of RCA, medical management only), chronic HFpEF, and CKD stage IIIa who presented with shortness of breath. He was found to be in acute decompensated heart
failure and admitted for IV diuresis. He has diuresed well and has now been transitioned back to oral Lasix. His home losartan was held due to worsening renal function. He has been started on amlodipine instead for blood pressure control and will
need to follow-up with his PCP and spin instructor for further monitoring and dosage adjustments as needed. During this hospitalization his Eliquis was held for IR biopsy of a retroperitoneal lymph node which was completed on 06/08/2025 for further
staging of his renal cell carcinoma. He tolerated the procedure well and his Eliquis has now been restarted. He will need close follow-up with oncology. He will also need outpatient follow-up with nephrology for ongoing monitoring of his CKD.
General: No Apparent Distress, Comfortable and Conversant
HEENT: NormoCephalic, Moist mucous membranes, Atraumatic
Respiratory: Clear and Non Labored Respirations
Cardiac: S1/S2 and Regular Rhythm; No Rub or Gallop
GI: Soft, Non Tender, Non Distended and Normal Bowel Sounds
Musculoskeletal: Mild lower extremity edema, no deformity
: NO [place]
Neuro: Awake, Alert, Nonfocal/grossly intact
Psych: Calm and Intact Judgment/Insight
Discharge Plan
-
Patient Disposition: Home (Routine Discharge)
Discharge Diagnosis/Procedures: Acute heart failure with preserved ejection fraction
Right kidney mass with right retroperitoneal lymph node involvement, right hepatic lesion, bilateral adrenal masses, pulmonary nodules
Activity Restrictions/Additional Instructions:
You were admitted for treatment of heart failure. You were diuresed with improvement in your breathing. You have now been transitioned back to oral diuretic. Your blood pressure medication losartan was held due to worsening kidney function.
Instead you will be discharged with a prescription for amlodipine for blood pressure control. Imaging showed a right kidney mass with right retroperitoneal lymph node involvement. A biopsy was taken from 1 of those lymph nodes and the results are
pending. Your Eliquis was held for the biopsy and has now been restarted. You will need to follow-up closely with oncology for the biopsy results and further management. You will also need to follow-up with cardiology for monitoring and
medication adjustments as needed.
Instructions: *PCP/Other Can Labeler Heart Failure Instructions
Referrals:
ION HOLMAN DO [Family Provider, Family Practice]
Prescriptions:
New
amlodipine 5 mg Tablet
5 mg PO DAILY 30 Days Qty: 30 0RF
Eliquis 5 mg Tablet
5 mg PO BID 60 Days Qty: 120 0RF
Continued
aspirin 81 mg Tablet,Chewable
81 mg PO DAILY
vitamin B complex Tablet
1 tab PO DAILY
furosemide 20 mg Tablet
20 mg PO DAILY
magnesium 200 mg Tablet
200 mg PO DAILY
omega-3 fatty acids-fish oil 684-1,200 mg Capsule,Delayed Release(Dr/Ec)
2 cap PO DAILY
azelastine 137 mcg (0.1 %) [place],Non-Aerosol
2 spray INTRANASAL HS
turmeric 400 mg Capsule
400 mg PO DAILY
Discontinued
losartan 50 mg Tablet
50 mg PO BID
Eliquis 2.5 mg Tablet
2.5 mg PO BID
Discharge Orders:
Discharge Patient (As Directed); Ordered 06/09/25
Ordered By: Norman Bell
Discharge Date and Time
Print Language: BOLIVIAN
[2025-06-09 11:31] LABS: Glucose - Point of Care 205 mg/dl (70-99)
--- NOTE | 2025-06-09 11:34 | CM ---
Patient seen at bedside
discharge today
offered VN again-declined VN
IMM explained & signed yesterday. In chart
left message for Marquez in security regarding shuttle to his car
PLAN: Home, no needs, declined VN
drove self
--- NOTE | 2025-06-09 11:52 | W.PN.NEPH.PH ---
Today's Communication / Plan
-
dc
Assessment/Plan
-
Impression:
decompensated congestive heart failure/Echocardiogram\\EF of 55%, mild to moderate MR, basal inferior hypokinesis, thrombus in IVC
stage IV renal cancer
CKD stage IIIA
IVC thrombus despite oral anticoagulation therapy
hypertension
bilateral adrenal gland nodules
s/p retroperitoneal LN bx
Plan:
follow BMP within 2 weeks
dc planning
-
-
Date of Service: June 09, 2025
CC / HPI / ROS
-
Chief Complaint:
acute kidney injury
History of Present Illness:
ELLIOT/Cr stable at 1.6
hemodynamically stable
hgb stable 12.5 after bx
Review of Systems:
no CP/SOB
Labs
-
Labs:
WBC 8.5 10^3/uL (4.8-10.8) 06/09/25 06:15
RBC 4.69 10^6/uL (4.70-6.10) L 06/09/25 06:15
Hgb 12.5 g/dL (13.0-18.0) L 06/09/25 06:15
Hct 38.9 % (39.0-52.0) L 06/09/25 06:15
Plt Count 188 10^3/uL (130-400) 06/09/25 06:15
Sodium 134 mmol/L (135-145) L 06/09/25 06:15
Potassium 4.6 mmol/L (3.5-5.1) 06/09/25 06:15
Chloride 98 mmol/L (98-107) 06/09/25 06:15
Carbon Dioxide 26 mmol/L (22-30) 06/09/25 06:15
BUN 29 mg/dl (9-20) H 06/09/25 06:15
Creatinine 1.6 mg/dL (0.7-1.3) H 06/09/25 06:15
eGFR 42.75 06/09/25 06:15
Glucose 144 mg/dl (70-99) H 06/09/25 06:15
Calcium 9.4 mg/dl (8.4-10.2) 06/09/25 06:15
Enz-Q-Yfahexdtchb Pept 841 pg/ml 06/02/25 09:23
Albumin 4.5 g/dl (3.5-5.0) 06/02/25 09:23
Physical Exam
-
Vital Signs:
Vital Signs
Temp Pulse Resp BP Pulse Ox
98.3 F 82 16 103/58 97
06/09/25 10:49 06/09/25 10:49 06/09/25 10:49 06/09/25 10:49 06/09/25 10:49
Cardiovascular:: Regular rate and rhythm
Respiratory:: Bilateral: Coarse
Lung Excursion:: Normal
Abdomen:: Nontender and Soft
Bowel Sounds:: Normal
Extremity Edema:: None: Bilateral:
[2025-06-09] MEDS: NOVOLOG FLEXPEN-LOW RESISTANCE 2 UNITS SC (11:56)
--- NOTE | 2025-06-12 10:17 | W.HF.CON ---
Heart Failure
- LV Function
Left ventricular function study result: LV Ejection fraction >/= 50%
Ejection Fraction Percentage: 55
- ARNI
Patient already on ARNI: No
Heart Failure ARNI Not Indicated: LV Ejection Fraction >/= 40%
- ACEI/ARB
Patient already on ACEI/ARB: No
Heart Failure ACEI/ARB Not Indicated: LV Ejection Fraction > 40%
- Beta Mayuri
Patient already on Evidence Based Beta Mayuri: No
Heart Failure Evidence Based Beta Mayuri Not Indicated: LV Ejection Fraction > 40%
- Mineralocorticord Receptor Antagonist
Patient already on MRA: No
Heart Failure MRA Not Indicated: LV Ejection Fraction > 40%
- SGLT-2 Inhibitor
Patient already on SGLT-2 Inhibitor: No
Heart Failure SGLT-2 Inhibitor Contraindication: Patient Refusal
- Afib Anticoagulation
Patient already on Anticoagulation for Afib: Yes
- NYHA CHF Classification
NYHA CHF Classification Level: Class III - Symptoms w/ min exertion, interferes w/ nml daily activity
- ACC/AHA Stage
ACC/AHA Stage: Stage C: Symptomatic Heart Failure
== END 2025-06-09 13:36 | disposition home or self-care (01) | DRG 264 ==
LOC: 3 WEST ACU 13:48
PROVIDERS: Hospitalist; Nurse Practitioner; Nurse Practitioner Family; Radiology Vascular & Interventional Radiology; Specialist; ADMITTING PHYSICIAN Internal Medicine; ATTENDING PHYSICIAN Internal Medicine; CONSULT PHYSICIAN Internal Medicine; CONSULT PHYSICIAN Internal Medicine Hematology & Oncology; CONSULT PHYSICIAN Specialist; EMERGENCY PHYSICIAN Emergency Medicine; FAMILY PHYSICIAN Student in an Organized Health Care Education/Training Program
PROC: 07BD3ZX Excision of Aortic Lymphatic, Percutaneous Approach, Diagnostic (ICD-10-PCS; 2025-06-08)
DX: I13.0 Hypertensive heart and chronic kidney disease with heart failure and stage 1 through stage 4 chronic kidney disease, or unspecified chronic kidney disease (principal); I50.33 Acute on chronic diastolic (congestive) heart failure; C64.1 Malignant neoplasm of right kidney, except renal pelvis; C79.71 Secondary malignant neoplasm of right adrenal gland; C79.72 Secondary malignant neoplasm of left adrenal gland; C77.2 Secondary and unspecified malignant neoplasm of intra-abdominal lymph nodes; K76.9 Liver disease, unspecified; E27.9 Disorder of adrenal gland, unspecified; R91.8 Other nonspecific abnormal finding of lung field; Z79.82 Long term (current) use of aspirin; Z79.899 Other long term (current) drug therapy; Z79.01 Long term (current) use of anticoagulants; R09.02 Hypoxemia; Z87.891 Personal history of nicotine dependence; I25.10 Atherosclerotic heart disease of native coronary artery without angina pectoris; I25.82 Chronic total occlusion of coronary artery; N18.31 Chronic kidney disease, stage 3a; E66.9 Obesity, unspecified; Z68.35 Body mass index [BMI] 35.0-35.9, adult; E11.22 Type 2 diabetes mellitus with diabetic chronic kidney disease; I27.20 Pulmonary hypertension, unspecified; I45.10 Unspecified right bundle-branch block; I87.2 Venous insufficiency (chronic) (peripheral); R91.1 Solitary pulmonary nodule
CPT/HCPCS: 38505; 71046; 74178; 77012; 80048; 80053; 80061; 81003; 81015; 82570; 82962; 83036; 83735; 83880; 84156; 84443; 84484; 85025; 85027; 85379; 85730; 88173; 88305; 88333; 88341; 88342; 93005; 93306; 96374; 99152; 99153; 99285; Q9967

== ENCOUNTER → 2025-06-14 13:12 | Outpatient (REF) | payer MEDICARE, OTHER, SELFPAY | LOC: MRI 3T 13:12 | PROVIDERS: ATTENDING PHYSICIAN Internal Medicine Hematology & Oncology; FAMILY PHYSICIAN Student in an Organized Health Care Education/Training Program | DX: C64.1 Malignant neoplasm of right kidney, except renal pelvis (principal) | CPT/HCPCS: 70553; A9575 ==